=== PATIENT | male | born 1950 ===

== ENCOUNTER → 2017-07-21 | Outpatient (CLI) | payer MEDICARE, BC ==
--- NOTE | 2017-07-22 10:26 | BD ---
EXAMINATION TYPE: Axial Bone Density DATE OF EXAM: 07/21/2017 COMPARISON: NONE CLINICAL HISTORY: Osteoporosis screening. Postmenopausal female. Height: 6 ft Weight: FRAX RISK QUESTIONS: Secondary Osteoporosis: 1. Type 1 Diabetes: TYPE 2 Current Tobacco Use: YES RISK FACTORS HISTORY OF: Active: YES MEDICATIONS: How Long: Additional Medications: ACTOS, HYDROCODONE,ASPIRIN, PRESER VISION, NIACIN, OMEGA 3, VIT 3, METFORMIN, PLAVIX, JANUVIA, METOPROLOL, ATORVASTATIN, DIOVAN Additional History: PT HAD KNEE REPLACMENT 3 WEEKS AGO EXAM MEASUREMENTS: Bone mineral densitometry was performed using the [employer] System. Bone mineral density as measured about the Lumbar spine is: ----- L1-L4(G/cm2): 1.275 T Score Values are as follows: ----- L2: 1.2 ----- L3: -0.1 ----- L4: 2.0 ----- L1-L4: 0.8 BASELINE Bone mineral density about the R hip (g/cm2): 0.911 Bone mineral density about the L hip (g/cm2): 0.881 T Score values are as follows: -----R Neck: -0.9 -----L Neck: -1.1 -----R Total: -0.7 -----L Total: 0.0 BASELINE IMPRESSION: Osteopenia (T Score between -2.5 and -1) with regards to the left femur. There is slightly increased risk of fracture and the patient may be considered for treatment. Re-Screen 2-5 years. NOTE: T-SCORE=SD OF THE YOUNG ADULT MEAN.
== END | disposition home or self-care (01) ==
LOC: RADBDWWP 16:07
PROVIDERS: ATTEND Family Medicine
DX: M85.852 Other specified disorders of bone density and structure, left thigh (principal); E11.22 Type 2 diabetes mellitus with diabetic chronic kidney disease; N18.9 Chronic kidney disease, unspecified
CPT/HCPCS: 77080

== ENCOUNTER → 2018-09-04 | Outpatient (CLI) | payer MEDICARE ==
--- NOTE | 2018-09-04 15:24 | XR ---
KUB HISTORY: Abdominal pain and history kidney stone, right flank pain KUB on 2 images Kidney show no definite calcifications. Degenerative disc changes in the visualized spine. Calcificat ions within the pelvis may be vascular. No evident bowel obstruction or pneumoperitoneum. IMPRESSION: No acute abnormality
== END | disposition home or self-care (01) ==
LOC: RADXRYALE 14:40
PROVIDERS: ATTEND Physician Assistant
DX: R10.30 Lower abdominal pain, unspecified (principal); Z87.442 Personal history of urinary calculi
CPT/HCPCS: 74018

== ENCOUNTER → 2018-09-22 | Outpatient (CLI) | payer MEDICARE ==
--- NOTE | 2018-09-22 15:18 | US ---
EXAMINATION TYPE: US kidneys/renal and bladder DATE OF EXAM: 09/22/2018 COMPARISON: NONE CLINICAL HISTORY: I129 HYPERTENSIVE CHR KIDNEY DISEASE,N183 CKD. Hx renal stones. Patient states hav ing a hx of renal stones. Right side pain. EXAM MEASUREMENTS: Right Kidney: 10.4 x 4.6 x 5.1 cm Left Kidney: 10.5 x 4.5 x 5.0 cm Right Kidney: No hydronephrosis or masses seen Left Kidney: Cystic appearing lesion visualized. Lesion noted at the lower pole= 2.4 x 2.1 x 2.2 cm, smaller probable cortical cyst also present Bladder: Adjacent to inferior right wall, lesion visualized= 1.5 x 1.4 x 1.1 cm Bilateral Jets seen Cortical medullary differentiation is maintained. Inferior impression on the urinary bladder due to enlarged prostate is noted. IMPRESSION: Luminal abnormality along the urinary bladder wall is indeterminate, difficult to exclude transitiona l cell carcinoma although findings could be related to the hypertrophic prostate gland. Consider urol ogy consult. Cyst within the left kidney appears simple
== END | disposition home or self-care (01) ==
LOC: RADUSWWP 13:35
PROVIDERS: ATTEND Family Medicine
DX: N28.1 Cyst of kidney, acquired (principal); I12.9 Hypertensive chronic kidney disease with stage 1 through stage 4 chronic kidney disease, or unspecified chronic kidney disease; N18.3 Chronic kidney disease, stage 3 (moderate)
CPT/HCPCS: 76770

== ENCOUNTER → 2020-07-04 | Outpatient (CLI) | payer MEDICARE ==
--- NOTE | 2020-07-04 09:21 | US ---
EXAMINATION TYPE: US kidneys/renal and bladder DATE OF EXAM: 07/04/2020 COMPARISON: NONE CLINICAL HISTORY: R31.9 Hematuria. microscopic hematuria EXAM MEASUREMENTS: Right Kidney: 10.4 x 4.4 x 5.4 cm Left Kidney: 11.1 x 5.4 x 6.2 cm Right Kidney: No hydronephrosis or masses seen Left Kidney:No hydronephrosis or masses seen 2.8 x 1.9 x 2.2cm cyst. Bladder: 2.8 x 1.7cm lesion either within bladder versus stemming off of prostate was seen two years ago on US and is increasing in size Bilateral Jets seen: yes . There is no evidence for hydronephrosis at this point in time. No nephrolithiasis is seen. No teagan s are identified. The urinary bladder is anechoic. Bilateral ureteral jets are seen. IMPRESSION: 1. Hypertrophic change of the prostate gland. 2. Renal cyst left kidney.
== END | disposition home or self-care (01) ==
LOC: RADUSWWP 08:26
PROVIDERS: ATTEND Urology
DX: N28.1 Cyst of kidney, acquired (principal); N40.0 Benign prostatic hyperplasia without lower urinary tract symptoms
CPT/HCPCS: 76770

== ENCOUNTER → 2021-04-08 | Outpatient (CLI) | payer MEDICARE ==
--- NOTE | 2021-04-08 16:31 | XR ---
Abdomen HISTORY: R109,R300 ABD PAIN,Dysuria Frontal view of the abdomen on 2 images, correlation to prior KUB 09/04/2018 Degenerative disc changes are present in the visualized spine. There is retained fecal debris through out the distribution of the ascending and descending colon. Postop change noted to the right hip stat us post arthroplasty. Bone mineralization is reduced. Phleboliths present in left hemipelvis, vascula r calcifications present. Lung bases are clear as visualized. The entire abdomen not included on the exam. IMPRESSION: No abnormality evident to account for patient's symptoms.
== END | disposition home or self-care (01) ==
LOC: RADXRYALE 14:56
PROVIDERS: ATTEND Physician Assistant
DX: R10.9 Unspecified abdominal pain (principal); R30.0 Dysuria
CPT/HCPCS: 74018

== ENCOUNTER → 2023-01-18 | Outpatient (CLI) | payer MEDICARE ==
--- NOTE | 2023-01-18 11:40 | CTL ---
EXAMINATION TYPE: CT Low Dose Lung DATE OF EXAM ORDERED: 01/18/2023 HISTORY: . Lung cancer screening CT DLP: [address] CTDI: 3.29 mGy Automated exposure control for dose reduction was used. SCREENING VISIT: COMPARISON: None TECHNIQUE: Low dose computed tomography scan was performed through the chest at 1 mm thick sections a nd reconstructed images in multiple planes at 1 mm and [address] DIAGNOSTIC QUALITY: Limited, but interpretable FINDINGS: There are multiple subpleural bilateral leg measure 2 mm or less. Larger subpleural right upper lobe nodule on image 90 series 4 and within the right middle lobe image 195 series 4 measuring Artifact limits assessment bases. Limited inspiration with elevated hemidiaphragms. Airway appears pa tent. Subsegmental areas of consolidation most likely atelectasis or scarring. Underlying central lobular s ymphysis changes. A coronary artery calcification is seen. There is a trace of pericardial fluid. Aorta normal caliber with mild atherosclerotic changes. Small hiatal hernia. Structures of the upper abdomen are limited. Hypertrophic degenerative changes spine. IMPRESSION: 1. COPD with multiple less than 5 mm pulmonary nodules which have a benign appearance. 2. Coronary artery calcifications. CT LUNG RAD AND CT CHEST RECOMMENDATION: Lung-Rad 2 Benign Appearance or Behavior: Continue annual sc reening with LDCT in 12 months.
== END | disposition home or self-care (01) ==
LOC: RADCTMAIN 10:42
PROVIDERS: ATTEND Internal Medicine Critical Care Medicine
DX: Z12.2 Encounter for screening for malignant neoplasm of respiratory organs (principal); J44.9 Chronic obstructive pulmonary disease, unspecified; R91.8 Other nonspecific abnormal finding of lung field; I25.10 Atherosclerotic heart disease of native coronary artery without angina pectoris; R06.00 Dyspnea, unspecified; Z87.891 Personal history of nicotine dependence
CPT/HCPCS: 71271; 94060; 94726; 94729

== ENCOUNTER 2023-10-17 15:05 | Inpatient (IN) | payer MEDICARE ==
[~2023-10-17 15:05] MED LIST: HEPARIN SOD,PORK IN 0.45% NACL 250 ML IV ONE; HEPARIN SODIUM 1,000 UN/ML (10ML VL) ONE; INSULIN ASPART (NovoLOG) 100 UNIT/ML VIAL SQ ONE; INSULIN DETEMIR (LEVEMIR) 100 UNIT/ML SYR SQ ONE; SODIUM CHLORIDE 0.9% 1,000 ML BAG ONE
[2023-10-18] MEDS ORDERED: INSULIN DETEMIR (LEVEMIR) 100 UNIT/ML SYR SQ ONE (08:00)
[2023-10-18] MEDS ORDERED: ISOSORBIDE MONONITRATE ER 30 MG TAB.ER.24H PO ONE (09:49)
[2023-10-18] MEDS ORDERED: ASPIRIN 81 MG ONE (09:49)
[2023-10-18] MEDS ORDERED: CLOPIDOGREL 75 MG TAB ONE (09:49)
[2023-10-18] MEDS ORDERED: TAMSULOSIN 0.4 MG CAP.ER.24H PO ONE (09:50)
[2023-10-18] MEDS ORDERED: METOPROLOL SUCCINATE (ER) 25 MG TAB.ER.24H PO ONE (14:00)
--- NOTE | 2023-11-22 14:05 | XR ---
Patient Jorge Hernandez ID [id number] Order # EXAMINATION TYPE: XR chest 2V DATE OF EXAM: 10/17/2023 COMPARISON: No comparison studies available during PACS downtime INDICATION: Not provided TECHNIQUE: Frontal and lateral views of the chest are obtained. FINDINGS: The heart size is normal. The pulmonary vasculature is normal. The lungs are clear. IMPRESSION: 1. No acute pulmonary process.
== END 2023-10-18 14:07 | disposition home or self-care (01) | DRG 310 ==
LOC: 3SCARD 15:05
PROVIDERS: ADMIT Student in an Organized Health Care Education/Training Program; ATTEND Student in an Organized Health Care Education/Training Program
PROC: 5A2204Z Restoration of Cardiac Rhythm, Single (ICD-10-PCS; principal; 2023-10-17)
DX: I47.10 Supraventricular tachycardia, unspecified (principal); E11.22 Type 2 diabetes mellitus with diabetic chronic kidney disease; E11.65 Type 2 diabetes mellitus with hyperglycemia; N18.9 Chronic kidney disease, unspecified; Z79.4 Long term (current) use of insulin; I25.10 Atherosclerotic heart disease of native coronary artery without angina pectoris; E78.5 Hyperlipidemia, unspecified; F17.210 Nicotine dependence, cigarettes, uncomplicated; Z96.649 Presence of unspecified artificial hip joint; Z96.659 Presence of unspecified artificial knee joint; Z79.84 Long term (current) use of oral hypoglycemic drugs; Z79.02 Long term (current) use of antithrombotics/antiplatelets; Z79.899 Other long term (current) drug therapy; Z95.5 Presence of coronary angioplasty implant and graft; Z85.51 Personal history of malignant neoplasm of bladder; Z79.82 Long term (current) use of aspirin
CPT/HCPCS: 71046; 93005; 96374; 99291

== ENCOUNTER 2024-08-28 23:36 | Inpatient (IN) | payer MEDICARE ==
--- NOTE | 2024-08-28 23:53 | ED ---
Fall HPI - General Chief Complaint: Fall Stated Complaint: Fall, L Side Pain Time Seen by Provider: 08/28/24 23:44 Source: patient, RN notes reviewed, old records reviewed Mode of arrival: ambulatory Limitations: no limitations - History of Present Illness Initial Comments: This is a 73-year-old male after a fall 3 days ago off a ladder. Less than 10 f eet. Patient fell landing on his left side rib pain shoulder pain back pain unsure if he hit his head no loss of consciousness. Pain is severe, mild shortness of breath pain has been ongoing for the last 3 days and significantly and progressively worsening. 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[employer] Fall Witnessed: yes, by family Place Fall Occurred: home Loss of Consciousness: none Prolonged Down Time?: no Symptoms Prior to Fall: none Location: head, chest, back Location - Extremities: Left: Shoulder Severity: severe Severity scale (1-10): 9 Context: tripped/slipped Associated Symptoms: denies - Related Data Home Medications Medication Instructions Recorded Confirmed Atorvastatin [Lipitor] 80 mg PO HS 07/13/13 08/29/24 Clopidogrel [Plavix] 75 mg PO DAILY 07/13/13 08/29/24 sitaGLIPtin [Januvia] 100 mg PO DAILY 07/13/13 08/29/24 Aspirin 81 mg PO DAILY 08/29/24 08/29/24 Ibuprofen [Motrin] 800 mg PO TID PRN 08/29/24 08/29/24 Insulin Glargine,Hum.rec.anlog 65 units SQ HS 08/29/24 08/29/24 [Lantus Solostar Pen] Isosorbide Mononitrate ER [Imdur] 30 mg PO DAILY 08/29/24 08/29/24 Metoprolol Succinate (ER) [Toprol 25 mg PO DAILY 08/29/24 08/29/24 XL] Nitroglycerin Sl Tabs [Nitrostat] 0.4 mg SUBLINGUAL Q5M PRN 08/29/24 08/29/24 [place] 3-6-9 1 cap PO DAILY 08/29/24 08/29/24 Tamsulosin HCl [Flomax] 0.4 mg PO DAILY 08/29/24 08/29/24 Vit C/E/Zn/Coppr/Lutein/Zeaxan 1 cap PO BID 08/29/24 08/29/24 [Preservision Areds 2 Softgel] metFORMIN HCL [Glucophage] 500 mg PO BID 08/29/24 08/29/24 Previous Rx's Medication Instructions Recorded Acetaminophen Tab [Tylenol] 650 mg PO Q6HR PRN tab 09/03/24 Amiodarone [Cordarone] 200 mg PO DAILY #14 tab 09/03/24 HYDROcodone/APAP 10-325MG [[place] 1 each PO Q4HR PRN #30 tab 09/03/24 10-325] Lidocaine 4% Patch 1 patch TOPICAL DAILY #30 patch 09/03/24 Sodium Bicarbonate Tab 650 mg PO TID #90 tab 09/03/24 methocarbamoL [Robaxin] 500 mg PO TID #90 tab 09/03/24 Allergies Allergy/AdvReac Type Severity Reaction Status Date / Time iodine Allergy Unknown Rash/Hives Verified 08/29/24 10:07 Review of Systems ROS Statement: Those systems with pertinent positive or pertinent negative responses have been documented in the HPI. ROS Other: All systems not noted in ROS Statement are negative. Past Medical History Past Medical History: Coronary Artery Disease (CAD), Diabetes Mellitus, Hyperlipidemia Additional Past Medical History / Comment(s): "OCCAS. STOMACH ACHES" History of Any Multi-Drug Resistant Organisms: None Reported Past Surgical History: Appendectomy, Heart Catheterization With Stent, Joint R eplacement, Orthopedic Surgery, Tonsillectomy Additional Past Surgical History / Comment(s): CARDIAC STENTS X2, RT KNEE REPLACEMENT, ARTHROSCOPY LULY KNEES Past Anesthesia/Blood Transfusion Reactions: No Reported Reaction Date of Last Stent Placement:: 2006 Past Psychological History: No Psychological Hx Reported Smoking Status: Current every day smoker Past Alcohol Use History: Occasional Past Drug Use History: None Reported - Past Family History Mother Family Medical History: Cancer Additional Family Medical History / Comment(s): Colon cancer Father Additional Family Medical History / Comment(s): Hemodialysis General Exam Limitations: no limitations General appearance: alert, in no apparent distress Head exam: Present: atraumatic, normocephalic, normal inspection Eye exam: Present: normal appearance, PERRL, EOMI. Absent: scleral icterus, conjunctival injection, periorbital swelling ENT exam: Present: normal exam, mucous membranes moist Neck exam: Present: normal inspection. Absent: tenderness, meningismus, lymphadenopathy Respiratory exam: Present: normal lung sounds bilaterally. Absent: respiratory distress, wheezes, rales, rhonchi, stridor Cardiovascular Exam: Present: regular rate, normal rhythm, normal heart sounds. Absent: systolic murmur, diastolic murmur, rubs, gallop, clicks GI/Abdominal exam: Present: soft, normal bowel sounds. Absent: distended, tenderness, guarding, rebound, rigid Extremities exam: Present: normal inspection, full ROM, normal capillary refill. Absent: tenderness, pedal edema, joint swelling, calf tenderness Back exam: Present: normal inspection Neurological exam: Present: alert, oriented X3, CN II-XII intact Psychiatric exam: Present: normal affect, normal mood Skin exam: Present: warm, dry, intact, normal color. Absent: rash Course Vital Signs 08/28/24 08/28/24 08/29/24 23:37 23:50 00:40 Temperature 98.0 F Pulse Rate 78 88 170 H Respiratory 18 16 20 Rate Blood Pressure 102/58 106/80 O2 Sat by Pulse 92 L 95 95 Oximetry 08/29/24 08/29/24 08/29/24 00:57 01:01 01:11 Temperature Pulse Rate 177 H 168 H 160 H Respiratory 20 22 20 Rate Blood Pressure 114/92 107/87 106/20 O2 Sat by Pulse 92 L 92 L 92 L Oximetry 08/29/24 08/29/24 08/29/24 01:32 01:35 01:37 Temperature Pulse Rate 138 H 122 H Respiratory 18 18 Rate Blood Pressure 109/68 94/66 O2 Sat by Pulse 95 92 L 95 Oximetry 08/29/24 08/29/24 08/29/24 01:40 01:56 02:36 Temperature Pulse Rate 109 H 106 H 92 Respiratory 18 18 16 Rate Blood Pressure 114/70 130/69 102/65 O2 Sat by Pulse 95 96 97 Oximetry 08/29/24 08/29/24 08/29/24 03:31 05:13 07:35 Temperature 98.2 F 98.2 F Pulse Rate 98 90 90 Respiratory 16 16 18 Rate Blood Pressure 111/57 135/80 148/91 O2 Sat by Pulse 96 99 Oximetry 08/29/24 08/29/24 08/29/24 08:23 09:12 09:21 Temperature Pulse Rate 86 77 Respiratory 16 18 Rate Blood Pressure 134/59 134/62 O2 Sat by Pulse 98 100 99 Oximetry 08/29/24 08/29/24 08/29/24 11:32 13:31 15:39 Temperature 98.5 F Pulse Rate 84 75 74 Respiratory 18 16 18 Rate Blood Pressure 171/75 141/79 138/78 O2 Sat by Pulse 98 95 Oximetry 08/29/24 08/29/24 08/29/24 18:08 19:22 22:00 Temperature Pulse Rate 66 69 60 Respiratory 12 18 18 Rate Blood Pressure 135/60 134/70 O2 Sat by Pulse 97 98 99 Oximetry 08/30/24 08/30/24 08/30/24 00:00 02:00 06:26 Temperature Pulse Rate 60 57 L 60 Respiratory 18 18 18 Rate Blood Pressure 132/72 147/80 160/73 O2 Sat by Pulse 98 98 98 Oximetry 08/30/24 08/30/24 09:00 13:00 Temperature Pulse Rate 75 68 Respiratory 17 17 Rate Blood Pressure 145/78 131/75 O2 Sat by Pulse 98 97 Oximetry - Reevaluation(s) Reevaluation #1: 08/29/24 00:13 Medical records reviewed Reevaluation #2: 08/29/24 01:58 Patient begins to have significant and severe short of breath, likely transitioning to tamponade, found to be in atrial fibrillation with RVR which is new onset for this patient. Thora vent is placed with improvement in oxygenation and breathing Heart rate is controlled with Cardizem now in sinus rhythm Reevaluation #3: 08/29/24 01:59 Patient informed of results and questions answered Reevaluation #4: Was pt. sent in by a medical professional or institution (, PA, AUDIO VIDEO TECHNICIAN, urgent care, hospital, or halfway...) When possible be specific @ -no Did you speak to anyone other than the patient for history (EMS, parent, family, police, friend...)? What history was obtained from this source @ -no Did you review nursing and triage notes (agree or disagree)? Why? @ -agree Are old charts reviewed (outside hosp., previous admission, EMS record, old EKG, old radiological studies, urgent care reports/EKG's, halfway records)? Report findings @ -yes Differential Diagnosis (chest pain, altered mental status, abdominal pain women, abdominal pain men, vaginal bleeding, weakness, fever, dyspnea, syncope, headache, dizziness, GI bleed, back pain, seizure, CVA, palpatations, mental health, musculoskeletal)? @ -prior EKG interpreted by me (3pts min.). @ -yes X-rays interpreted by me (1pt min.). @ -yes positive for pneumothorax CT interpreted by me (1pt min.). @ -yes negative for traumatic injury as a chest tube placement U/S interpreted by me (1pt. min.). @ -no What testing was considered but not performed or refused? (CT, X-rays, U/S, labs)? Why? @ -none What meds were considered but not given or refused? Why? @ -none Did you discuss the management of the patient with other professionals (professionals i.e. , PA, AUDIO VIDEO TECHNICIAN, lab, RT, psych nurse, social worker delinquency prevention, title lawyer, teacher, customer service officer, case checker)? Give summary @ -no Was smoking cessation discussed for >3mins.? @ -no Was critical care preformed (if so, how long)? @ -yes92 Were there social determinants of health that impacted care today? How? (Homele ssness, low income, unemployed, alcoholism, drug addiction, transportation, low edu. Level, literacy, decrease access to med. care, nursing home, rehab)? @ -none Was there de-escalation of care discussed even if they declined (Discuss DNR or withdrawal of care, Hospice)? DNR status @ -no What co-morbidities impacted this encounter? (DM, HTN, Smoking, COPD, CAD, Cancer, CVA, ARF, Chemo, Hep., AIDS, mental health diagnosis, sleep apnea, morbid obesity)? @ -none Was patient admitted / discharged? Hospital course, mention meds given and route, prescriptions, significant lab abnormalities, going to OR and other pertinent info. @ - 73 male to the ER for evaluation with severe left-sided chest wall pain rib pain shoulder pain after a fall 3 days ago, patient does have significant distress here in the emergency department goes into new onset atrial fibrillation with RVR and found to have significant left-sided pneumothorax with low blood pressure tension pneumothorax. At this time patient does have a Thora vent placed patient was cardioverted with Cardizem medication, symptoms dramatically improved and he continues to rest comfortably, patient will admit for further evaluation and management Admitted Undiagnosed new problem with uncertain prognosis? @ -no Drug Therapy requiring intensive monitoring for toxicity (Heparin, Nitro, Insulin, Cardizem)? @ -no Were any procedures done? @ -Yes chest tube placement, cardioversion of atrial fibrillation with RVR Diagnosis/symptom? @ -Traumatic pneumothorax, tension pneumothorax, atrial fibrillation with RVR Acute, or Chronic, or Acute on Chronic? @ -Acute Uncomplicated (without systemic symptoms) or Complicated (systemic symptoms)? @ -Complicated Side effects of treatment? @ -no Exacerbation, Progression, or Severe Exacerbation? @ -exacerbation Poses a threat to life or bodily function? How? (Chest pain, [place], [place], pneumonia, PE, COPD, DKA, ARF, appy, cholecystitis, CVA, Diverticulitis, Homicidal, Suicidal, threat to staff... and all critical care pts) @ -yes acute traumatic injury Reevaluation #5: Differential Dyspnea: Coronary syndrome, arrhythmia, tamponade, asthma, COPD, pulmonary embolism, pneu monia, pneumothorax, pulmonary effusion, anaphylaxis, diabetic ketoacidosis, flailed chest, pulmonary contusion, diaphragmatic rupture, anemia, neuromuscular, this is not meant to be an all-inclusive list. - Consultations Consultation #1: Spoke with sound who agrees to admit this patient Procedures - Chest Tube Insertion Consent Obtained: verbal consent Side of Procedure: left Indication: Pneumothorax Site Prep: Chloroprep Local Anesthesia: Lidocaine 1%, With Epi Insertion Site: Other (midClavicular) Open into Pleural Space Using: Hemostats Tube Size (Citizen [place]): Other (thoravent) Returns: Air, Blood Sutured in Place: No (bandage) Attached to Suction: Yes Type of Suction: Pleuravac Repeat X-ray Results: Lung Inflated Patient Tolerated Procedure: well Complications: Pain Medical Decision Making - Medical Decision Making 73 male to the ER for evaluation with severe left-sided chest wall pain rib pain shoulder pain after a fall 3 days ago, patient does have significant distress here in the emergency department goes into new onset atrial fibrillation with RVR and found to have significant left-sided pneumothorax with low blood pressure tension pneumothorax. At this time patient does have a Thora vent placed patient was cardioverted with Cardizem medication, symptoms dramatically improved and he continues to rest comfortably, patient will admit for further evaluation and management - Lab Data Result diagrams: 09/03/24 04:49 09/03/24 04:49 Lab Results 08/29/24 08/29/24 08/29/24 Range/Units 00:47 00:47 00:47 WBC 15.25 H (4.50-10.00) 10*3/uL RBC 4.41 (4.40-5.60) 10*6/uL Hgb 13.1 (13.0-17.0) g/dL Hct 40.0 (39.6-50.0) % MCV 90.7 (80.0-97.0) fL MCH 29.7 (27.0-32.0) pg MCHC 32.8 (32.0-37.0) g/dL Plt Count 272 (140-440) 10*3/uL MPV 11.5 (9.5-12.2) fL Immature Gran % (Auto) 0.5 % Neutrophils % 79.8 % Lymphocytes % 10.2 % Monocytes % 8.1 % Eosinophils % 1.0 % Basophils % 0.4 % Immature Gran # 0.08 H (0.00-0.04) 10*3/uL Neutrophils # 12.16 H (1.80-7.70) 10*3/uL Lymphocytes # 1.55 (0.90-5.00) 10*3/uL Monocytes # 1.24 H (0.20-1.00) 10*3/uL Eosinophils # 0.16 (0.04-0.35) 10*3/uL Basophils # 0.06 (0.00-0.10) 10*3/uL PT 10.9 (10.0-12.5) sec INR 1.0 (<1.2) APTT 33.0 H (22.0-30.0) sec Sodium 139 (137-145) mmol/L Potassium 5.3 H (3.5-5.1) mmol/L Chloride 109 H (98-107) mmol/L Carbon Dioxide 15 L (22-30) mmol/L Anion Gap 15 mmol/L BUN 33 H (9-20) mg/dL Creatinine 1.88 H (0.66-1.25) mg/dL Est GFR (CKD-EPI)AfAm 40 (>60 ml/min/1.73 sqM) Est GFR (CKD-EPI)NonAf 35 (>60 ml/min/1.73 sqM) Glucose 249 H (74-99) mg/dL Calcium 9.6 (8.4-10.2) mg/dL Phosphorus 4.2 (2.5-4.5) mg/dL Magnesium 1.8 (1.6-2.3) mg/dL Total Bilirubin 0.8 (0.2-1.3) mg/dL AST 29 (17-59) U/L ALT 28 (4-49) U/L Alkaline Phosphatase 155 H (38-126) U/L Troponin I (0.000-0.034) ng/mL NT-Pro-B Natriuret Pep 568 pg/mL Total Protein 6.7 (6.3-8.2) g/dL Albumin 4.3 (3.5-5.0) g/dL Serum Alcohol <10 mg/dL 08/29/24 Range/Units 00:47 WBC (4.50-10.00) 10*3/uL RBC (4.40-5.60) 10*6/uL Hgb (13.0-17.0) g/dL Hct (39.6-50.0) % MCV (80.0-97.0) fL MCH (27.0-32.0) pg MCHC (32.0-37.0) g/dL Plt Count (140-440) 10*3/uL MPV (9.5-12.2) fL Immature Gran % (Auto) % Neutrophils % % Lymphocytes % % Monocytes % % Eosinophils % % Basophils % % Immature Gran # (0.00-0.04) 10*3/uL Neutrophils # (1.80-7.70) 10*3/uL Lymphocytes # (0.90-5.00) 10*3/uL Monocytes # (0.20-1.00) 10*3/uL Eosinophils # (0.04-0.35) 10*3/uL Basophils # (0.00-0.10) 10*3/uL PT (10.0-12.5) sec INR (<1.2) APTT (22.0-30.0) sec Sodium (137-145) mmol/L Potassium (3.5-5.1) mmol/L Chloride (98-107) mmol/L Carbon Dioxide (22-30) mmol/L Anion Gap mmol/L BUN (9-20) mg/dL Creatinine (0.66-1.25) mg/dL Est GFR (CKD-EPI)AfAm (>60 ml/min/1.73 sqM) Est GFR (CKD-EPI)NonAf (>60 ml/min/1.73 sqM) Glucose (74-99) mg/dL Calcium (8.4-10.2) mg/dL Phosphorus (2.5-4.5) mg/dL Magnesium (1.6-2.3) mg/dL Total Bilirubin (0.2-1.3) mg/dL AST (17-59) U/L ALT (4-49) U/L Alkaline Phosphatase (38-126) U/L Troponin I <0.012 (0.000-0.034) ng/mL NT-Pro-B Natriuret Pep pg/mL Total Protein (6.3-8.2) g/dL Albumin (3.5-5.0) g/dL Serum Alcohol mg/dL - EKG Data -: EKG Interpreted by Me (EKG is A-fib with RVR 178 QRS 125 QTc 346) EKG shows normal: sinus rhythm (Hoang EKG is sinus rhythm tachycardia 111 LA 181 QRS 131 QTc 407) Rate: tachycardia When compared to previous EKG there are: no significant change (Repeat EKG is sinus tachycardia 107 LA 183 QRS 133 QTc 413) - Radiology Data Radiology results: report reviewed (Chest x-ray left-sided pneumothorax significant, chest x-ray improved, CT brain C-spine chest abdomen pelvis positive chest tube no other acute disease or injury), image reviewed Critical Care Time Critical Care Time: Yes Total Critical Care Time: 92 Disposition Clinical Impression: Fall, Ribs, multiple fractures, Pneumothorax, left, New onset atrial flutter, Atrial fibrillation with RVR Disposition: ADMITTED IP TO THIS HOSP Condition: Serious Is patient prescribed a controlled substance at d/c from ED?: No Time of Disposition: 02:00
[2024-08-28] MEDS: HYDROmorphone 1 MG/ML 1 ML SYRINGE IM STA (23:55)
[2024-08-29] MEDS: SODIUM CHLORIDE 0.9% 1,000 ML IV ONE ×2 (00:56→01:19)
[2024-08-29] MEDS: ONDANSETRON 4 MG/2 ML VIAL IVP STA (00:58)
[2024-08-29] MEDS: LIDOCAINE 1%-EPI 1:100,000 20 ML VIAL SQ STA (00:58)
[2024-08-29 00:59] LABS: Basophils # (A) 0.06 10*3/uL (0.00-0.10); Basophils % (A) 0.4 %; Eosinophils # (A) 0.16 10*3/uL (0.04-0.35); HGB 13.1 g/dL (13.0-17.0); Lymphocytes # (A) 1.55 10*3/uL (0.90-5.00); Lymphocytes % (A) 10.2 %; MCH 29.7 pg (27.0-32.0); MCHC 32.8 g/dL (32.0-37.0); MCV 90.7 fL (80.0-97.0); Mean Platelet Volume 11.5 fL (9.5-12.2); Monocytes # (A) 1.24 10*3/uL (0.20-1.00); Monocytes % (A) 8.1 %; Neutrophils # (A) 12.16 10*3/uL (1.80-7.70); Neutrophils % (A) 79.8 %; Platelet Count 272 10*3/uL (140-440); RBC 4.41 10*6/uL (4.40-5.60); RDW 13.8 % (11.5-14.5); WBC 15.25 10*3/uL (4.50-10.00)
[2024-08-29] MEDS: MORPHINE SULFATE 4 MG/ML SYRINGE IV STA (01:00)
[2024-08-29 01:08] LABS: Prothrombin Time 10.9 sec (10.0-12.5)
[2024-08-29 01:12] LABS: ALT 28 U/L (4-49); African American GFR (CKD) 40 (>60 ml/min/1.73 sqM); Albumin 4.3 g/dL (3.5-5.0); Alcohol <10 mg/dL; Anion Gap 15 mmol/L; Blood Urea Nitrogen 33 mg/dL (9-20); Calcium 9.6 mg/dL (8.4-10.2); Carbon Dioxide 15 mmol/L (22-30); Chloride 109 mmol/L (98-107); Glucose 249 mg/dL (74-99); Non-African American GFR(CKD) 35 (>60 ml/min/1.73 sqM); Sodium 139 mmol/L (137-145); Total Bilirubin 0.8 mg/dL (0.2-1.3); Total Protein 6.7 g/dL (6.3-8.2)
[2024-08-29 01:19] LABS: NT-Pro-B-Type Natriuretic Pept 568 pg/mL
[2024-08-29 01:20] LABS: Magnesium 1.8 mg/dL (1.6-2.3); Phosphorus 4.2 mg/dL (2.5-4.5); Potassium 5.3 mmol/L (3.5-5.1)
[2024-08-29 01:21] LABS: AST 29 U/L (17-59); Alkaline Phosphatase 155 U/L (38-126)
[2024-08-29] MEDS: HYDROmorphone 1 MG/ML 1 ML SYRINGE IVP STA (01:25)
[2024-08-29] MEDS: methylPREDNISolone SOD SUCCI 125 MG/2 ML VIAL IV STA (01:25)
[2024-08-29] MEDS: FAMOTIDINE 20 MG/2 ML VIAL IV STA (01:26)
[2024-08-29] MEDS: diphenhydrAMINE 50 MG/ML 1 ML VIAL IVP STA (01:27)
[2024-08-29] MEDS: DILTIAZEM 5 MG/ML 5 ML VIAL IVP STA (01:27)
--- NOTE | 2024-08-29 01:34 | XR ---
EXAM: XR Left Shoulder frontal view CLINICAL HISTORY: c/o fall backwards from ladder. Pt states he fell 10 feet. Pt reports L sided chest pain and L shoulder pain. Pt reports SOB. TECHNIQUE: Frontal view of the left shoulder. COMPARISON: No relevant prior studies available. FINDINGS: Bones/joints: Osteopenia. Lateral left 6th and 7th rib fractures. Left shoulder is intact Soft tissues: Unremarkable. Pleural space: Large left pneumothorax. IMPRESSION: 1. Large left pneumothorax. 2. Lateral left 6th and 7th rib fractures.
--- NOTE | 2024-08-29 01:36 | XR ---
EXAM: XR Chest, 1 View CLINICAL HISTORY: fall TECHNIQUE: Frontal view of the chest. COMPARISON: 10/17/2023 FINDINGS: Lungs: Left lung is contracted over left lower lung zone. Pleural space: Large left pneumothorax with more than 70% loss in volume. Mediastinum: No significant shift. Bones/joints: Osteopenia. Lateral left 6th and 7th rib fractures. Soft tissues: Unremarkable. IMPRESSION: 1. Large left pneumothorax. 2. Lateral left 6th and 7th rib fractures. <MYCVCSECTION> Communications: 08/29/24 01:45 Call Doctor Regarding Pneumothorax, called Dr. Jaimes on 08/29 01:45 (-04:00)
--- NOTE | 2024-08-29 01:59 | XR ---
EXAM: XR Chest, 1 View CLINICAL HISTORY: ITS.REASON XR Reason: LT THORA VENT INSERTION TECHNIQUE: Frontal view of the chest. COMPARISON: Same day at 1:17 a.m. IMPRESSION: Left pneumothorax has resolved after left chest tube placement. Left basilar atelectasis. Re-expansion edema should be considered. No change otherwise
--- NOTE | 2024-08-29 03:41 | CT ---
EXAM: CT Chest With Intravenous Contrast CLINICAL HISTORY: ITS.REASON CT Reason: pain TECHNIQUE: Axial computed tomography images of the chest with intravenous contrast. Coronal and sagittal reconstructions are performed. CTDI is 18.5 mGy and DLP is 1455 mGy-cm. This CT exam was performed using one or more of the following dose reduction techniques: automated exposure control, adjustment of the mA and/or kV according to patient size, and/or use of iterative reconstruction technique. COMPARISON: No relevant prior studies available. FINDINGS: Lungs: A small left hemothorax and adjacent pulmonary contusion versus atelectasis. Trace of left pneumothorax with chest catheter in place. No significant effusion. Heart: Unremarkable. No cardiomegaly. No significant pericardial effusion. No significant coronary artery calcifications. Bones/joints: Fracture in lateral aspect of left 6th and 7th ribs with 9 mm displacement. Soft tissues: Small amount of soft tissue gas of left anterior chest wall. Vasculature: Unremarkable. No thoracic aortic aneurysm. Lymph nodes: Unremarkable. No enlarged lymph nodes. IMPRESSION: 1. Fracture in lateral aspect of left 6th and 7th ribs with 9 mm displacement. 2. A small left hemothorax and adjacent pulmonary contusion versus atelectasis. 3. Trace of left pneumothorax with chest catheter in place. 4. No aortic dissection. EXAM: CT Abdomen and Pelvis With Intravenous Contrast CLINICAL HISTORY: pain TECHNIQUE: Axial computed tomography images of the abdomen and pelvis with intravenous contrast. Coronal and sagittal reconstructions are performed. CTDI is 19.2 mGy and DLP is 1205 mGy-cm. This CT exam was performed using one or more of the following dose reduction techniques: automated exposure control, adjustment of the mA and/or kV according to patient size, and/or use of iterative reconstruction technique. COMPARISON: No relevant prior studies available. FINDINGS: ABDOMEN: Liver: Unremarkable. No mass. Gallbladder and bile ducts: No acute findings. Pancreas: Unremarkable. No mass. No ductal dilation. Spleen: Unremarkable. No splenomegaly. Adrenals: Unremarkable. No mass. Kidneys and ureters: Bilateral renal cysts. Largest is on the left measuring about 3.2 cm. Stomach and bowel: Mild colonic diverticulosis. No obstruction. No mucosal thickening. PELVIS: Appendix: No findings to suggest acute appendicitis. Bladder: Unremarkable. No mass. Reproductive: No acute findings. ABDOMEN and PELVIS: Intraperitoneal space: Unremarkable. No free air. No significant fluid collection. Bones/joints: Total right hip replacement prostheses. Osteopenia. Mild degenerative changes. 6 mm anterolisthesis of L4 on L5. Moderate anterior wedge-shaped compression defect at L 2 with about 40% loss in height, appears chronic. Soft tissues: Unremarkable. Vasculature: Small amount of atherosclerotic calcifications. No abdominal aortic aneurysm. Lymph nodes: Unremarkable. No enlarged lymph nodes. IMPRESSION: No acute findings in the abdomen or pelvis.
[2024-08-29] MEDS ORDERED: ONDANSETRON 4 MG/2 ML VIAL IVP PRN (03:53)
[2024-08-29] MEDS ORDERED: NALOXONE 0.4 MG/ML 1 ML VIAL IV PRN ×2 (03:53)
--- NOTE | 2024-08-29 03:54 | CT ---
EXAM: CT Head Without Intravenous Contrast CLINICAL HISTORY: fall backwards from ladder. pt states he fell 10 feet. pt reports L sided chest pain and L shoulder pain. pt reports SOB. no LOC. no blood thinners TECHNIQUE: Axial computed tomography images of the head/brain without intravenous contrast. Coronal and sagittal reconstructions are performed. CTDI is 45.3 mGy and DLP is 1196 mGy-cm. This CT exam was performed using one or more of the following dose reduction techniques: automated exposure control, adjustment of the mA and/or kV according to patient size, and/or use of iterative reconstruction technique. COMPARISON: No relevant prior studies available. FINDINGS: Brain: Age-related generalized brain volume loss and chronic small vessel ischemic changes. No hemorrhage. Ventricles: Unremarkable. No ventriculomegaly. Bones/joints: No acute findings. Soft tissues: Unremarkable. Sinuses: Unremarkable as visualized. No acute sinusitis. Mastoid air cells: Unremarkable as visualized. No mastoid effusion. Orbits: Bilateral cataract surgeries. IMPRESSION: No acute findings in the head/brain. EXAM: CT Cervical Spine Without Intravenous Contrast CLINICAL HISTORY: fall backwards from ladder. pt states he fell 10 feet. pt reports L sided chest pain and L shoulder pain. pt reports SOB. no LOC. no blood thinners TECHNIQUE: Axial computed tomography images of the cervical spine without intravenous contrast. Coronal and sagittal reconstructions are performed. CTDI is 19.8 mGy and DLP is 505 mGy-cm. This CT exam was performed using one or more of the following dose reduction techniques: automated exposure control, adjustment of the mA and/or kV according to patient size, and/or use of iterative reconstruction technique. COMPARISON: No relevant prior studies available. FINDINGS: Vertebrae: Osteopenia. No acute fracture. Discs/spinal canal/neural foramina: Moderate degenerative disc disease. Soft tissues: Unremarkable. Vasculature: Small amount of atherosclerotic calcifications. IMPRESSION: No acute findings in the cervical spine.
[2024-08-29] MEDS: SODIUM CHLORIDE 0.9% 1,000 ML IV SCH (04:15)
[2024-08-29 05:23] LABS: Appearance,Urine Clear (Clear); Bilirubin,Urine Negative (Negative); Blood,Urine Negative (Negative); Color,Urine Colorless; Glucose,Urine (UA) Negative (Negative); Ketones,Urine Negative (Negative); Leukocyte Esterase,Urine Negative (Negative); Nitrite,Urine Negative (Negative); PH, Urine 5.5 (5.0-8.0); Protein,Urine Trace (Negative); Specific Gravity,Urine 1.037 (1.001-1.035); Urobilinogen,Urine <2.0 mg/dL (<2.0)
[2024-08-29] MEDS ORDERED: ACETAMINOPHEN TAB 325 MG TAB PO PRN (06:00)
--- NOTE | 2024-08-29 08:12 | P.CNPUL ---
History of Present Illness Consult date: 08/29/24 Requesting physician: Nazario Jaimes Reason for consult: other (Left-sided pneumothorax) Chief complaint: Fall, chest pain, shortness of breath History of present illness: Patient presented to emergency department late last night after falling off a ladder 3 days ago. Reportedly, was cutting branches from a tree and fell approximately 10 feet. Landed on his left side. Denies head trauma. On arrival also complaining of some shortness of breath. Tachycardic. Chest x-ray showing a large left-sided pneumothorax. lateral left 6th and 7th rib fractures. ER physician placed a left-sided ThoraVent. Did have a follow-up CT of chest, abdomen, pelvis showing trace left-sided pneumothorax with the ThoraVent catheter in place. Small hemothorax with associated pulmonary contusion or at electasis. Redemonstration of left lateral 6th and 7th rib fractures with 9 mm displacement. Also, patient was noted to be to be in atrial fibrillation with RVR, and was bolused with 20 mg of IV Cardizem. Patient being seen in the emergency department. On 3 L/min nasal cannula. SpO2 reading 99%. Not in any respiratory distress. Blood pressure is normotensive. Nontachycardic. Normal saline infusing at 75 mg/h. As needed Dilaudid was ordered for pain . Pain described as sharp and rated 10 out of 10 with coughing or deep breathing or any movements. ThoraVent to suction and atrium at-20 cm H2O. Does have minimal intermittent air leaking. 70 cc of sanguinous output in collection chamber. CBC: WBC count 15.3 hemoglobin 13.1 g/dL, platelets 272. CMP: Sodium 139, potassium 5.3, chloride 109, serum bicarb 15, BUN 33, creatinine 1.88, glucose 249. Troponin less than 0.012. LFTs not elevated. Urinalysis unremarkable. Serum alcohol level less than 10. Current vital signs: Temperature 98.9, heart rate 94 bpm, blood pressure 145/91 mmHg, SpO2 reading 98% on 3 L/min nasal cannula. Review of Systems REVIEW OF SYSTEMS: CONSTITUTIONAL: Denies any recent significant weight loss or weight gain. EYES: Denies change in vision. EARS, NOSE, MOUTH, THROAT: Denies headaches, denies sore throat. CARDIOVASCULAR: Denies central chest pain, palpitations or syncopal episodes. RESPIRATORY: Denies cough, congestion or hemoptysis. GASTROINTESTINAL: Denies change in appetite, abdominal pain, nausea and vomiting, or diarrhea GENITOURINARY: Denies hematuria, denies infections. MUSKULOSKELETAL: Denies pain, denies swelling. INTEGUMENTARY: Denies rash, denies eczema. NEUROLOGICAL: Denies recent memory loss, no recent seizure activity. PSYCHIATRIC: Denies anxiety, denies depression. HEMATOLOGIC/LYMPHATIC: Denies anemia, denies enlarged lymph node Past Medical History Past Medical History: Coronary Artery Disease (CAD), Diabetes Mellitus, Hyperlipidemia Additional Past Medical History / Comment(s): "OCCAS. STOMACH ACHES" History of Any Multi-Drug Resistant Organisms: None Reported Past Surgical History: Appendectomy, Heart Catheterization With Stent, Joint Replacement, Orthopedic Surgery, Tonsillectomy Additional Past Surgical History / Comment(s): CARDIAC STENTS X2, RT KNEE REPLACEMENT, ARTHROSCOPY LULY KNEES Past Anesthesia/Blood Transfusion Reactions: No Reported Reaction Date of Last Stent Placement:: 2006 Past Psychological History: No Psychological Hx Reported Smoking Status: Current every day smoker Past Alcohol Use History: Occasional Past Drug Use History: None Reported Medications and Allergies Home Medications Medication Instructions Recorded Confirmed Type Atorvastatin [Lipitor] 80 mg PO HS 07/13/13 08/29/24 History Clopidogrel [Plavix] 75 mg PO DAILY 07/13/13 08/29/24 History sitaGLIPtin [Januvia] 100 mg PO DAILY 07/13/13 08/29/24 History Aspirin 81 mg PO DAILY 08/29/24 08/29/24 History HYDROcodone/APAP 10-325MG [[place] 1 tab PO Q6H PRN 08/29/24 08/29/24 History 10-325] Ibuprofen [Motrin] 800 mg PO TID PRN 08/29/24 08/29/24 History Insulin Glargine,Hum.rec.anlog 65 units SQ HS 08/29/24 08/29/24 History [Lantus Solostar Pen] Isosorbide Mononitrate ER [Imdur] 30 mg PO DAILY 08/29/24 08/29/24 History Metoprolol Succinate (ER) [Toprol 25 mg PO DAILY 08/29/24 08/29/24 History Xl] Nitroglycerin Sl Tabs [Nitrostat] 0.4 mg SUBLINGUAL Q5M PRN 08/29/24 08/29/24 History [place] 3-6-9 1 cap PO DAILY 08/29/24 08/29/24 History Tamsulosin HCl [Flomax] 0.4 mg PO DAILY 08/29/24 08/29/24 History Vit C/E/Zn/Coppr/Lutein/Zeaxan 1 cap PO BID 08/29/24 08/29/24 History [Preservision Areds 2 Softgel] metFORMIN HCL [Glucophage] 500 mg PO BID 08/29/24 08/29/24 History Allergies Allergy/AdvReac Type Severity Reaction Status Date / Time iodine Allergy Unknown Rash/Hives Verified 08/29/24 10:07 Physical Exam Vitals: Vital Signs Temp Pulse Resp BP Pulse Ox 08/29/24 05:13 98.2 F 90 16 135/80 99 08/29/24 03:31 98 16 111/57 96 08/29/24 02:36 92 16 102/65 97 08/29/24 01:56 106 H 18 130/69 96 08/29/24 01:40 109 H 18 114/70 95 08/29/24 01:37 95 08/29/24 01:35 122 H 18 94/66 92 L 08/29/24 01:32 138 H 18 109/68 95 08/29/24 01:11 160 H 20 106/20 92 L 08/29/24 01:01 168 H 22 107/87 92 L 08/29/24 00:57 177 H 20 114/92 92 L 08/29/24 00:40 170 H 20 106/80 95 08/28/24 23:50 88 16 95 08/28/24 23:37 98.0 F 78 18 102/58 92 L Intake and Output 08/28/24 08/28/24 08/29/24 14:59 22:59 06:59 Other: Weight 103.419 kg GENERAL EXAM: Alert, 73-year-old male, resting comfortably on 3 L/min nasal cannula, in no respiratory distresss. HEAD: Normocephalic and atraumatic EYES: Normal reaction of pupils, equal size. NOSE: Clear with pink turbinates. THROAT: No erythema or exudates. NECK: No masses, no JVD. Trachea is midline. CHEST: ThoraVent left chest wall hooked to atrium with suction -20 cm H2O. Continues to have intermittent airleak. Approximately 70 cc of sanguinous output in collection chamber. No subcutaneous emphysema or crepitus palpated on chest wall. LUNGS: Equal air entry with no crackles, wheeze, rhonchi or dullness. No conversational dyspnea or accessory muscle use.. CVS: S1 and S2 normal with no audible murmur, regular rhythm. No extra heart sounds ABDOMEN: No hepatosplenomegaly, active bowel sounds, no guarding or rigidity. SPINE: No scoliosis or deformity SKIN: No rashes CENTRAL NERVOUS SYSTEM: No focal deficits, tone is normal in all 4 extremities. EXTREMITIES: There is no peripheral edema, clubbing, or cyanosis. Peripheral pulses are intact. Results - Laboratory Findings CBC and BMP: 08/29/24 00:47 08/29/24 00:47 PT/INR, D-dimer PT 10.9 sec (10.0-12.5) 08/29/24 00:47 INR 1.0 (<1.2) 08/29/24 00:47 Abnormal lab findings: Abnormal Labs 08/29/24 08/29/24 08/29/24 00:47 00:47 00:47 WBC 15.25 H Immature Gran # 0.08 H Neutrophils # 12.16 H Monocytes # 1.24 H APTT 33.0 H Potassium 5.3 H Chloride 109 H Carbon Dioxide 15 L BUN 33 H Creatinine 1.88 H Glucose 249 H Alkaline Phosphatase 155 H Ur Specific [place] Urine Protein 08/29/24 04:56 WBC Immature Gran # Neutrophils # Monocytes # APTT Potassium Chloride Carbon Dioxide BUN Creatinine Glucose Alkaline Phosphatase Ur Specific [place] 1.037 H Urine Protein Trace H - Diagnostic Findings Chest x-ray: image reviewed CT scan - chest: image reviewed Assessment and Plan Assessment: Fall from ladder, approximately 10 feet resulting in left lateral displaced rib fractures 6 and 7, traumatic left-sided pneumothorax, hemothorax, with associated atelectasis or more likely pulmonary contusion. Status post Thora vent insertion, follow-up CT of chest, abdomen, pelvis showing trace left-sided pneumothorax with the ThoraVent catheter in place. Small h emothorax with associated pulmonary contusion or atelectasis. Redemonstration of left lateral 6th and 7th rib fractures with 9 mm displacement Acute hypoxemic respiratory failure, currently on 3 L/min nasal cannula, secondary to above New onset atrial fibrillation with RVR, likely secondary to above, currently normal sinus Chronic kidney disease stage III Hypertension History of hyperlipidemia History of coronary artery disease with previous PCI/stents Diabetes mellitus type 2 Obesity, BMI 31.8 kg/m Plan: Patient status post ThoraVent insertion on the left Repeat imaging showing only trace residual left-sided pneumothorax and small hemothorax Chest tube currently to suction -20 cm H2O As needed Dilaudid ordered for pain Pain management consultation Encourage incentive spirometer hourly Previously bolused with 20 mg of Cardizem Cardiology consulted for management of patient's A-fib We will continue to follow I have personally seen and examined the patient, performed the documentation and the assessment and plan as written. Number of minutes spent on the visit:20 08/29/2024, the patient is being seen in joint evaluation along with the nurse practitioner. The patient is currently still in the emergency department. The patient had a fall off a 10 foot ladder landing on his left chest and sustained an injury to his left rib cage. The patient is displaced left 6th and 7th ribs and a large left-sided traumatic pneumothorax and a Thora vent was inserted with successful reexpansion of the left lung. At this point, there is no active leak in the patient's Thora vent is attached to a Pleur-evac. The patient continues to have chest wall pain and the patient is currently on Dilaudid for pain control every 3 hours. The patient is currently hypoxic and currently on 2 L of oxygen by nasal cannula with a pulse ox of 98%. There may be also a pulmonary contusion involving the left lung. In terms of comorbidities, the patient is known to have coronary artery disease, chronic stage III kidney disease, hypertension hyperlipidemia and diabetes mellitus type 2. He also had a bout of atrial fibrillation with rapid ventricular response and he has converted back into normal sinus rhythm. He is current cardiac rhythm is sinus tachycardia and he has recovered from his A-fib RVR. Remains on aspirin and Plavix. Remains on amiodarone 200 mg p.o. twice daily and metoprolol 25 mg XL 1 tablet a day. Renal function remains stable. Hemoglobin stable at 13.1. Troponins are negative. proBNP is not elevated. Alcohol level is less than 10. Time with Patient: Greater than 30
[2024-08-29] MEDS: AMIODARONE 200 MG TAB PO SCH (08:24)
[2024-08-29] MEDS ORDERED: DEXTROSE 50% SYRINGE 50 ML IVP PRN ×2 (08:51)
[2024-08-29] MEDS: SODIUM BICARBONATE TAB 650 MG TAB PO SCH (09:18)
--- NOTE | 2024-08-29 09:26 | P.HPIM ---
History of Present Illness H&P Date: 08/29/24 Patient is a 73-year-old male with history of CAD status post stent, type 2 diabetes, dyslipidemia, nicotine dependence presenting after falling off of a ladder 3 days ago. It was approximately 10 feet high and this happened while he was cutting branches of a tree. He landed on his left side. He claims that he felt like he was healing over the last 2 days but this morning, he was having more difficulty breathing. Most of his pain is on the left side. Denies any nausea, vomiting, abdominal pain, urinary or bowel complaints. In the ED, temperature was 98, pulse 78 then went up to 170, respiratory rate 18, blood pressure 102/58, saturating at 92% on room air. WBC 15.2, hemoglobin 13.1, potassium 5.3, bicarb 15, anion gap 15, creatinine 1.88, glucose 249, troponin initial negative, second was 0.019, proBNP 568, urinalysis negative, serum alcohol negative. Chest x-ray independently interpreted, shows large left-sided pneumothorax. Lateral left 6th and 7th rib fractures. Shoulder x- ray showed the same. Chest and abdomen pelvis CT showed 1 cm rib fractures with 9 mm displacement, small left hemothorax with adjacent pulmonary contusion versus atelectasis. Patient had chest tube placed at this point, showed trace left pneumothorax, no aortic dissection. Head and cervical spine CT did not show any acute process. EKG independently interpreted, shows atrial fibrillati on with right bundle branch block and RVR. Most recent EKG shows sinus tachycardia with right bundle branch block. Cardiology, pulmonology, general surgery consulted. Pertinent positives and negatives as discussed in HPI, a complete review of systems was performed and all other systems are negative. Patient seen and examined at bedside. Vital signs reviewed General: nontoxic, no distress, appears at stated age Derm: warm, dry, left lateral chest bruising Head: atraumatic, normocephalic, symmetric Eyes: EOMI, no lid lag, anicteric sclera, pupils equal round reactive to light ENT: Nose and ears atraumatic Neck: No thyromegaly, supple Mouth: no lip lesion, mucus membranes moist Cardiovascular: S1S2 reg, no murmur, no edema Lungs: clear to auscultation bilateral, no rhonchi, no rales, no wheeze, no accessory muscle use, chest tube in place, supplemental oxygen Abdominal: soft, nontender to palpation, no guarding, no appreciable organomegaly Ext: no gross muscle atrophy, muscle strength muscle strength 5 out of 5 in all 4 extremities, no contractures Neuro: CN II-XII grossly intact Psych: Alert, oriented, appropriate affect Assessment/Plan: Active: Mechanical fall Traumatic large left pneumothorax Left lateral 6th and 7th rib fracture Suspected pulmonary contusion Small left hemothorax New onset A-fib with RVR Leukocytosis, reactive secondary to above - Patient has now status post chest tube - Pulmonology note reviewed, continue conservative management - Pain control with oral Tylenol as needed, oral [place] as needed, IV Dilaudid as needed, lidocaine patch daily - General Surgery and cardiology consulted - Cardiology starting patient on amiodarone 200 twice daily - Continue to trend troponin - May need an echocardiogram, defer to cardiology History of CKD stage III - Creatinine at baseline - Continue to monitor Mild anion gap and non-anion gap metabolic acidosis Mild hyperkalemia - Started on sodium bicarb 650 mg 3 times daily - Continue to monitor Type 2 diabetes Hyperglycemia - Sliding scale insulin, monitor for hypoglycemia Chronic: CAD status post stent Dyslipidemia Hypertension - Resume home medications once reconciled The patient is admitted with an anticipated greater than 2 midnight stay as inpatient status for evaluation of pulmonary contusion and pneumothorax. Surrogate decision-maker: Daughter CODE STATUS: Full code DVT prophylaxis: SCDs Anticipated discharge date: Pending clinical course Anticipated discharge place: Pending clinical course A total of 65 minutes was spent on the care of this complex patient more than 50% of the time was spent in counseling and care coordination. Past Medical History Past Medical History: Coronary Artery Disease (CAD), Diabetes Mellitus, Hype rlipidemia Additional Past Medical History / Comment(s): "OCCAS. STOMACH ACHES" History of Any Multi-Drug Resistant Organisms: None Reported Past Surgical History: Appendectomy, Heart Catheterization With Stent, Joint Replacement, Orthopedic Surgery, Tonsillectomy Additional Past Surgical History / Comment(s): CARDIAC STENTS X2, RT KNEE REPLACEMENT, ARTHROSCOPY LULY KNEES Past Anesthesia/Blood Transfusion Reactions: No Reported Reaction Date of Last Stent Placement:: 2006 Past Psychological History: No Psychological Hx Reported Smoking Status: Current every day smoker Past Alcohol Use History: Occasional Past Drug Use History: None Reported Medications and Allergies Home Medications Medication Instructions Recorded Confirmed Type Atorvastatin [Lipitor] 80 mg PO HS 07/13/13 09/24/13 History Clopidogrel [Plavix] 75 mg PO DAILY 07/13/13 09/21/13 History Fenofibrate,Micronized 200 mg PO DAILY 07/13/13 09/24/13 History [Fenofibrate] Fish Oil/Dha/Epa [Fish Oil 1,200 1 tab PO DAILY 07/13/13 09/21/13 History mg Fish Oil] Metoprolol Tartrate [Lopressor] 50 mg PO BID 07/13/13 09/24/13 History Niacin 500 mg PO DAILY 07/13/13 09/24/13 History Pioglitazone [Actos] 45 mg PO DAILY 07/13/13 09/24/13 History Valsartan [Diovan] 160 mg PO QAM 07/13/13 09/24/13 History glipiZIDE [Glucotrol] 10 mg PO [id number] 07/13/13 09/24/13 History metFORMIN HCL [Glucophage] 1,000 mg PO BID 07/13/13 09/24/13 History sitaGLIPtin [Januvia] 100 mg PO QAM 07/13/13 09/24/13 History Aspirin 325 mg PO DAILY 09/21/13 09/21/13 History Allergies Allergy/AdvReac Type Severity Reaction Status Date / Time iodine Allergy Unknown Rash/Hives Verified 08/28/24 23:42 Physical Exam Vitals: Vital Signs Temp Pulse Resp BP Pulse Ox 08/29/24 08:23 86 16 134/59 98 08/29/24 07:35 98.2 F 90 18 148/91 08/29/24 05:13 98.2 F 90 16 135/80 99 08/29/24 03:31 98 16 111/57 96 08/29/24 02:36 92 16 102/65 97 08/29/24 01:56 106 H 18 130/69 96 08/29/24 01:40 109 H 18 114/70 95 08/29/24 01:37 95 08/29/24 01:35 122 H 18 94/66 92 L 08/29/24 01:32 138 H 18 109/68 95 08/29/24 01:11 160 H 20 106/20 92 L 08/29/24 01:01 168 H 22 107/87 92 L 08/29/24 00:57 177 H 20 114/92 92 L 08/29/24 00:40 170 H 20 106/80 95 08/28/24 23:50 88 16 95 08/28/24 23:37 98.0 F 78 18 102/58 92 L Intake and Output 08/28/24 08/29/24 08/29/24 22:59 06:59 14:59 Output Total 70 Balance -70 Output: Chest Tube Drainage 70 Thora-Vent Left Upper 70 Anterior Chest Other: Weight 103.419 kg Results CBC & Chem 7: 08/29/24 00:47 08/29/24 00:47 Labs: Abnormal Lab Results - Last 24 Hours (Table) 08/29/24 08/29/24 08/29/24 Range/Units 00:47 00:47 00:47 WBC 15.25 H (4.50-10.00) 10*3/uL Immature Gran # 0.08 H (0.00-0.04) 10*3/uL Neutrophils # 12.16 H (1.80-7.70) 10*3/uL Monocytes # 1.24 H (0.20-1.00) 10*3/uL APTT 33.0 H (22.0-30.0) sec Potassium 5.3 H (3.5-5.1) mmol/L Chloride 109 H (98-107) mmol/L Carbon Dioxide 15 L (22-30) mmol/L BUN 33 H (9-20) mg/dL Creatinine 1.88 H (0.66-1.25) mg/dL Glucose 249 H (74-99) mg/dL Alkaline Phosphatase 155 H (38-126) U/L Ur Specific [place] (1.001-1.035) Urine Protein (Negative) 08/29/24 Range/Units 04:56 WBC (4.50-10.00) 10*3/uL Immature Gran # (0.00-0.04) 10*3/uL Neutrophils # (1.80-7.70) 10*3/uL Monocytes # (0.20-1.00) 10*3/uL APTT (22.0-30.0) sec Potassium (3.5-5.1) mmol/L Chloride (98-107) mmol/L Carbon Dioxide (22-30) mmol/L BUN (9-20) mg/dL Creatinine (0.66-1.25) mg/dL Glucose (74-99) mg/dL Alkaline Phosphatase (38-126) U/L Ur Specific [place] 1.037 H (1.001-1.035) Urine Protein Trace H (Negative)
--- NOTE | 2024-08-29 10:32 | P.CRDCN ---
History of Present Illness History of present illness: HISTORY OF PRESENT ILLNESS: This is a 73-year-old male with a past medical history significant for coronary artery disease with previous PCI at [facility], hypertension, hyperlipidemi a, diabetes, tobacco use, and alcohol use. Patient follows with a brush holder assembler at [facility]. we have been asked to see the patient in consultation for A- fib with RVR. Patient examined at the bedside. Patient presented to the hospital after sustaining a fall from a ladder. Patient was found to have a pneumothorax and had a left Thora vent placed. Additionally patient was found to be in A-fib with RVR. He is currently in sinus mechanism. Patient reports a lot of pain secondary to rib fractures. Vital signs are stable. REVIEW OF SYSTEMS: At the time of my exam: CONSTITUTIONAL: Denies fever or chills. HEENT: Denies blurred vision, vision changes, or eye pain. Denies hemoptysis CARDIOVASCULAR: Denies chest pain. Denies orthopnea. Denies PND. Denies palpitations RESPIRATORY: Denies shortness of breath. GASTROINTESTINAL: Denies abdominal pain. Denies nausea or vomiting. HEMATOLOGIC: Denies bleeding disorders. GENITOURINARY: Denies any blood in urine. SKIN: Denies pruitis. Denies rash. PHYSICAL EXAM: VITAL SIGNS: Reviewed. GENERAL: Well-developed in no acute distress. HEENT: Head is normocephalic. Pupils are equal, round. Sclerae anicteric. Mucous membranes of the mouth are moist. Neck supple. No JVD or thyromegaly LUNGS: Respirations even and unlabored. Lungs essentially clear to auscultation bilaterally. HEART: Regular rate and rhythm. S1 and S2 heard. ABDOMEN: Soft. Nondistended. Nontender. EXTREMITIES: Normal range of motion. No clubbing or cyanosis. Peripheral pulses intact. No lower extremity edema NEUROLOGIC: Awake and alert. Oriented x 3. ASSESSMENT: Status post mechanical fall Left pneumothorax, secondary to traumatic fall, status post Thora vent Left-sided rib fractures New onset A-fib with RVR, currently maintaining sinus mechanism Coronary artery disease with previous PCI performed at [facility] Hypertension Hyperlipidemia Diabetes Nicotine dependence Alcohol use PLAN: May obtain updated echocardiogram on an outpatient basis with patient's primary brush holder assembler Resume home cardiac medications Resume aspirin and Plavix when cleared by trauma surgery Due to trauma, will hold off on initiating oral anticoagulation. This can be reassessed on an outpatient basis when patient follows up with his primary brush holder assembler at [facility] Begin oral amiodarone 200 mg twice daily for 1 week only then discontinue comple tely No further inpatient recommendations from a cardiac standpoint We will sign off. Please reconsult if needed. Nurse practitioner note has been reviewed by physician. Signing provider agrees with the documented findings, assessment, and plan of care documented by MARINE DRAFTER as a scribe. Past Medical History Past Medical History: Coronary Artery Disease (CAD), Diabetes Mellitus, Hyperlipidemia Additional Past Medical History / Comment(s): "OCCAS. STOMACH ACHES" History of Any Multi-Drug Resistant Organisms: None Reported Past Surgical History: Appendectomy, Heart Catheterization With Stent, Joint Replacement, Orthopedic Surgery, Tonsillectomy Additional Past Surgical History / Comment(s): CARDIAC STENTS X2, RT KNEE REPLACEMENT, ARTHROSCOPY LULY KNEES Past Anesthesia/Blood Transfusion Reactions: No Reported Reaction Date of Last Stent Placement:: 2006 Past Psychological History: No Psychological Hx Reported Smoking Status: Current every day smoker Past Alcohol Use History: Occasional Past Drug Use History: None Reported Medications and Allergies Home Medications Medication Instructions Recorded Confirmed Type Atorvastatin [Lipitor] 80 mg PO HS 07/13/13 08/29/24 History Clopidogrel [Plavix] 75 mg PO DAILY 07/13/13 08/29/24 History sitaGLIPtin [Januvia] 100 mg PO DAILY 07/13/13 08/29/24 History Aspirin 81 mg PO DAILY 08/29/24 08/29/24 History HYDROcodone/APAP 10-325MG [[place] 1 tab PO Q6H PRN 08/29/24 08/29/24 History 10-325] Ibuprofen [Motrin] 800 mg PO TID PRN 08/29/24 08/29/24 History Insulin Glargine,Hum.rec.anlog 65 units SQ HS 08/29/24 08/29/24 History [Lantus Solostar Pen] Isosorbide Mononitrate ER [Imdur] 30 mg PO DAILY 08/29/24 08/29/24 History Metoprolol Succinate (ER) [Toprol 25 mg PO DAILY 08/29/24 08/29/24 History Xl] Nitroglycerin Sl Tabs [Nitrostat] 0.4 mg SUBLINGUAL Q5M PRN 08/29/24 08/29/24 History [place] 3-6-9 1 cap PO DAILY 08/29/24 08/29/24 History Tamsulosin HCl [Flomax] 0.4 mg PO DAILY 08/29/24 08/29/24 History Vit C/E/Zn/Coppr/Lutein/Zeaxan 1 cap PO BID 08/29/24 08/29/24 History [Preservision Areds 2 Softgel] metFORMIN HCL [Glucophage] 500 mg PO BID 08/29/24 08/29/24 History Allergies Allergy/AdvReac Type Severity Reaction Status Date / Time iodine Allergy Unknown Rash/Hives Verified 08/29/24 10:07 Physical Exam Vitals: Vital Signs Temp Pulse Resp BP Pulse Ox 08/29/24 05:13 98.2 F 90 16 135/80 99 08/29/24 03:31 98 16 111/57 96 08/29/24 02:36 92 16 102/65 97 08/29/24 01:56 106 H 18 130/69 96 08/29/24 01:40 109 H 18 114/70 95 08/29/24 01:37 95 08/29/24 01:35 122 H 18 94/66 92 L 08/29/24 01:32 138 H 18 109/68 95 08/29/24 01:11 160 H 20 106/20 92 L 08/29/24 01:01 168 H 22 107/87 92 L 08/29/24 00:57 177 H 20 114/92 92 L 08/29/24 00:40 170 H 20 106/80 95 08/28/24 23:50 88 16 95 08/28/24 23:37 98.0 F 78 18 102/58 92 L Intake and Output 08/28/24 08/29/24 08/29/24 22:59 06:59 14:59 Output Total 70 Balance -70 Output: Chest Tube Drainage 70 Thora-Vent Left Upper 70 Anterior Chest Other: Weight 103.419 kg Results 08/29/24 00:47 08/29/24 00:47 Cardiac Enzymes 08/29/24 08/29/24 Range/Units 00:47 00:47 AST 29 (17-59) U/L Troponin I <0.012 (0.000-0.034) ng/mL Coagulation 08/29/24 Range/Units 00:47 PT 10.9 (10.0-12.5) sec APTT 33.0 H (22.0-30.0) sec CBC 08/29/24 Range/Units 00:47 WBC 15.25 H (4.50-10.00) 10*3/uL RBC 4.41 (4.40-5.60) 10*6/uL Hgb 13.1 (13.0-17.0) g/dL Hct 40.0 (39.6-50.0) % Plt Count 272 (140-440) 10*3/uL Comprehensive Metabolic Panel 08/29/24 Range/Units 00:47 Sodium 139 (137-145) mmol/L Potassium 5.3 H (3.5-5.1) mmol/L Chloride 109 H (98-107) mmol/L Carbon Dioxide 15 L (22-30) mmol/L BUN 33 H (9-20) mg/dL Creatinine 1.88 H (0.66-1.25) mg/dL Glucose 249 H (74-99) mg/dL Calcium 9.6 (8.4-10.2) mg/dL AST 29 (17-59) U/L ALT 28 (4-49) U/L Alkaline Phosphatase 155 H (38-126) U/L Total Protein 6.7 (6.3-8.2) g/dL Albumin 4.3 (3.5-5.0) g/dL Current Medications Generic Name Dose Route Start Last Admin Trade Name Freq PRN Reason Stop Dose Admin Acetaminophen 650 mg 08/29/24 06:00 Acetaminophen Tab 325 Mg Tab PO Q6HR PRN Fever and/ or Pain Hydromorphone HCl 1 mg 08/29/24 03:53 Hydromorphone 1 Mg/Ml 1 Ml Syringe IVP Q3HR PRN Severe Pain (Scale 7 to 10) Hydromorphone HCl 0.5 mg 08/29/24 06:00 Hydromorphone 0.5 Mg/0.5 Ml Syringe IVP Q6HR PRN Pain Sodium Chloride 1,000 mls @ 75 mls/hr 08/29/24 04:00 08/29/24 04:15 Saline 0.9% IV 75 mls/hr .[id number] JOSE Administration Naloxone HCl 0.2 mg 08/29/24 03:53 Naloxone 0.4 Mg/Ml 1 Ml Vial IV Q2M PRN Opioid Reversal Ondansetron HCl 4 mg 08/29/24 03:53 Ondansetron 4 Mg/2 Ml Vial IVP Q8HR PRN Nausea And Vomiting Intake and Output 08/28/24 08/29/24 08/29/24 22:59 06:59 14:59 Output Total 70 Balance -70 Output: Chest Tube Drainage 70 Thora-Vent Left Upper 70 Anterior Chest Other: Weight 103.419 kg 08/29/24 00:47 08/29/24 00:47
[2024-08-29] MEDS: HYDROmorphone 0.5 MG/0.5 ML SYRINGE IVP PRN (11:20)
[2024-08-29] MEDS: METOPROLOL SUCCINATE (ER) 25 MG TAB.ER.24H PO SCH (11:25)
[2024-08-29] MEDS: ISOSORBIDE MONONITRATE ER 30 MG TAB.ER.24H PO SCH (11:25)
[2024-08-29] MEDS: LIDOCAINE 4% PATCH TOPICAL SCH (11:26)
--- NOTE | 2024-08-29 11:46 | XR ---
EXAMINATION TYPE: XR femur LT DATE OF EXAM: 08/29/2024 11:19 AM COMPARISON: None CLINICAL INDICATION: Male, 73 years old with history of trauma, fall, pain; PHH, pain TECHNIQUE: 2 views FINDINGS: Limited by osteopenia and overlying soft tissue especially at the hip. No obvious displace d fracture is seen. Some scattered vascular calcifications are noted. IMPRESSION: Limited by osteopenia and overlying soft tissue. No evident displaced fracture is seen. [facility], Workstation: [facility], 08/29/2024 11:44 AM
--- NOTE | 2024-08-29 13:02 | P.GSCN ---
History of Present Illness Consult date: 08/29/24 History of present illness: CHIEF COMPLAINT: Fall with left rib pain HISTORY OF PRESENT ILLNESS: This is a 73-year-old male who fell from a ladder 4 days ago. The ladder was less than 10 feet tall. He fell and landed on his left rib cage and back. Patient complains of pain left rib cage left shoulder and left lateral side of his leg. He denies any loss of consciousness. He is on Plavix. Patient had CT scan chest abdomen and pelvis that had reported fractures of the lateral left 6th, 7th and 9th ribs with a 9 mm displacement. Also small left hemothorax and possible pulmonary contusion and trace left pneumothorax with chest tube in place. Chest x-ray had reported a left large pneumothorax and patient had a Thora vent placed in the ER. Patient also with A-fib RVR and being seen by cardiology service. Patient denies any nausea or vomiting. Denies any abdominal pain. Does report pain with taking deep breaths. PAST MEDICAL HISTORY: See below. PAST SURGICAL HISTORY: See below MEDICATIONS: See below ALLERGIES: See below SOCIAL HISTORY: No illicit drug use. REVIEW OF SYSTEMS: CONSTITUTIONAL: Denies fever or chills. HEENT: Denies blurred vision, vision changes, or eye pain. Denies hemoptysis CARDIOVASCULAR: Denies chest pain or pressure. RESPIRATORY: No shortness of breath. GASTROINTESTINAL: See HPI for pertinent findings HEMATOLOGIC: Denies bleeding disorders. GENITOURINARY: Denies any blood in urine or increased urinary frequency. SKIN: Denies pruitis. Denies rash. PHYSICAL EXAM: VITAL SIGNS: Reviewed GENERAL: Well-developed in no acute distress. CHEST: Patient does have bruising noted in the left upper chest wall. Tenderness palpation along the left rib cage. Thora vent in place. HEENT: No sclera icterus. Extraocular movements grossly intact. Moist buccal mucosa. Head is atraumatic, normocephalic. No nasal drainage. ABDOMEN: Soft. Obese. Nondistended. Tenderness with palpation to right lower quadrant. NEUROLOGIC: Alert and oriented. Cranial nerves II through XII grossly intact. Extremities: Able to move all 4 extremities. Patient does have tenderness palpation of the lateral aspect of the left upper leg. No bruising noted. LABORATORY DATA: WBC 15.25 Hgb 13.1 platelets 272 INR 1.0 Sodium 139 potassium 5.3 creatinine 1.88 Troponins negative x 3 UA no evidence of infection no hematuria Serum alcohol level less than 10 IMAGING: CT scan chest abdomen pelvis reports fracture in lateral aspect of left 6th and 7th ribs with 9 mm displacement. A small left hemothorax and adjacent pulmonary contusion versus atelectasis. Trace left pneumothorax with chest chest tube in place Left shoulder and chest x-ray reports a large left pneumothorax lateral left 6th and 7th rib fractures Chest x-ray after chest tube placed reports left pneumothorax has resolved after left chest tube placement Left femur x-ray limited by osteopenia and overlying soft tissue no evidence of displaced fracture seen. ASSESSMENT: 1. Mechanical fall from ladder with trauma to left rib cage 2. Displaced lateral left 6th and 7th rib fractures 3. Large traumatic left pneumothorax status post Thora vent placement 4. Small left hemothorax 5. Left pulmonary contusion 6. A-fib RVR 7. Left upper leg pain likely contusion. No fracture on x-ray 8. Left shoulder pain no evidence of fracture on x-ray PLAN: - Encourage patient to use incentive spirometer - Continue pain management. [place] and Lidoderm patch added. Pain service on consult - Continue regular diet - Patient followed by pulmonary and cardiology service - Chest tube management per pulmonary service - Ok to resume aspirin and plavix - DVT prophylaxis SCDs Physician Hose Inspector note has been reviewed by physician. Signing provider agrees with the documented findings, assessment, and plan of care. Past Medical History Past Medical History: Coronary Artery Disease (CAD), Diabetes Mellitus, Hyperlipidemia Additional Past Medical History / Comment(s): "OCCAS. STOMACH ACHES" History of Any Multi-Drug Resistant Organisms: None Reported Past Surgical History: Appendectomy, Heart Catheterization With Stent, Joint Replacement, Orthopedic Surgery, Tonsillectomy Additional Past Surgical History / Comment(s): CARDIAC STENTS X2, RT KNEE REPLACEMENT, ARTHROSCOPY LULY KNEES Past Anesthesia/Blood Transfusion Reactions: No Reported Reaction Date of Last Stent Placement:: 2006 Past Psychological History: No Psychological Hx Reported Smoking Status: Current every day smoker Past Alcohol Use History: Occasional Past Drug Use History: None Reported Medications and Allergies Home Medications Medication Instructions Recorded Confirmed Type Atorvastatin [Lipitor] 80 mg PO HS 07/13/13 08/29/24 History Clopidogrel [Plavix] 75 mg PO DAILY 07/13/13 08/29/24 History sitaGLIPtin [Januvia] 100 mg PO DAILY 07/13/13 08/29/24 History Aspirin 81 mg PO DAILY 08/29/24 08/29/24 History HYDROcodone/APAP 10-325MG [[place] 1 tab PO Q6H PRN 08/29/24 08/29/24 History 10-325] Ibuprofen [Motrin] 800 mg PO TID PRN 08/29/24 08/29/24 History Insulin Glargine,Hum.rec.anlog 65 units SQ HS 08/29/24 08/29/24 History [Lantus Solostar Pen] Isosorbide Mononitrate ER [Imdur] 30 mg PO DAILY 08/29/24 08/29/24 History Metoprolol Succinate (ER) [Toprol 25 mg PO DAILY 08/29/24 08/29/24 History Xl] Nitroglycerin Sl Tabs [Nitrostat] 0.4 mg SUBLINGUAL Q5M PRN 08/29/24 08/29/24 History [place] 3-6-9 1 cap PO DAILY 08/29/24 08/29/24 History Tamsulosin HCl [Flomax] 0.4 mg PO DAILY 08/29/24 08/29/24 History Vit C/E/Zn/Coppr/Lutein/Zeaxan 1 cap PO BID 08/29/24 08/29/24 History [Preservision Areds 2 Softgel] metFORMIN HCL [Glucophage] 500 mg PO BID 08/29/24 08/29/24 History Allergies Allergy/AdvReac Type Severity Reaction Status Date / Time iodine Allergy Unknown Rash/Hives Verified 08/29/24 10:07 Surgical - Exam Vital Signs Temp Pulse Resp BP Pulse Ox 98.0 F 78 18 102/58 92 L 08/28/24 23:37 08/28/24 23:37 08/28/24 23:37 08/28/24 23:37 08/28/24 23:37 Results - Labs 08/29/24 00:47 08/29/24 00:47 Abnormal Lab Results - Last 24 Hours (Table) 08/29/24 08/29/24 08/29/24 Range/Units 00:47 00:47 00:47 WBC 15.25 H (4.50-10.00) 10*3/uL Immature Gran # 0.08 H (0.00-0.04) 10*3/uL Neutrophils # 12.16 H (1.80-7.70) 10*3/uL Monocytes # 1.24 H (0.20-1.00) 10*3/uL APTT 33.0 H (22.0-30.0) sec Potassium 5.3 H (3.5-5.1) mmol/L Chloride 109 H (98-107) mmol/L Carbon Dioxide 15 L (22-30) mmol/L BUN 33 H (9-20) mg/dL Creatinine 1.88 H (0.66-1.25) mg/dL Glucose 249 H (74-99) mg/dL Alkaline Phosphatase 155 H (38-126) U/L Ur Specific [place] (1.001-1.035) Urine Protein (Negative) 08/29/24 Range/Units 04:56 WBC (4.50-10.00) 10*3/uL Immature Gran # (0.00-0.04) 10*3/uL Neutrophils # (1.80-7.70) 10*3/uL Monocytes # (0.20-1.00) 10*3/uL APTT (22.0-30.0) sec Potassium (3.5-5.1) mmol/L Chloride (98-107) mmol/L Carbon Dioxide (22-30) mmol/L BUN (9-20) mg/dL Creatinine (0.66-1.25) mg/dL Glucose (74-99) mg/dL Alkaline Phosphatase (38-126) U/L Ur Specific [place] 1.037 H (1.001-1.035) Urine Protein Trace H (Negative) Diabetes panel 08/29/24 Range/Units 00:47 Sodium 139 (137-145) mmol/L Potassium 5.3 H (3.5-5.1) mmol/L Chloride 109 H (98-107) mmol/L Carbon Dioxide 15 L (22-30) mmol/L BUN 33 H (9-20) mg/dL Creatinine 1.88 H (0.66-1.25) mg/dL Glucose 249 H (74-99) mg/dL Calcium 9.6 (8.4-10.2) mg/dL AST 29 (17-59) U/L ALT 28 (4-49) U/L Alkaline Phosphatase 155 H (38-126) U/L Total Protein 6.7 (6.3-8.2) g/dL Albumin 4.3 (3.5-5.0) g/dL Calcium panel 08/29/24 Range/Units 00:47 Calcium 9.6 (8.4-10.2) mg/dL Phosphorus 4.2 (2.5-4.5) mg/dL Albumin 4.3 (3.5-5.0) g/dL Pituitary panel 08/29/24 Range/Units 00:47 Sodium 139 (137-145) mmol/L Potassium 5.3 H (3.5-5.1) mmol/L Chloride 109 H (98-107) mmol/L Carbon Dioxide 15 L (22-30) mmol/L BUN 33 H (9-20) mg/dL Creatinine 1.88 H (0.66-1.25) mg/dL Glucose 249 H (74-99) mg/dL Calcium 9.6 (8.4-10.2) mg/dL Adrenal panel 08/29/24 Range/Units 00:47 Sodium 139 (137-145) mmol/L Potassium 5.3 H (3.5-5.1) mmol/L Chloride 109 H (98-107) mmol/L Carbon Dioxide 15 L (22-30) mmol/L BUN 33 H (9-20) mg/dL Creatinine 1.88 H (0.66-1.25) mg/dL Glucose 249 H (74-99) mg/dL Calcium 9.6 (8.4-10.2) mg/dL Total Bilirubin 0.8 (0.2-1.3) mg/dL AST 29 (17-59) U/L ALT 28 (4-49) U/L Alkaline Phosphatase 155 H (38-126) U/L Total Protein 6.7 (6.3-8.2) g/dL Albumin 4.3 (3.5-5.0) g/dL
[2024-08-29 13:24] LABS: Glucose,Whole Blood 390 mg/dL (70-110)
[2024-08-29] MEDS: INSULIN LISPRO (HumaLOG) 100 UNIT/ML 10 mL VL SQ SCH (13:47)
[2024-08-29] MEDS: HYDROmorphone 1 MG/ML 1 ML SYRINGE IVP PRN (15:35)
--- NOTE | 2024-08-29 16:08 | P.PAINPG ---
Objective - Vital Signs Vital signs: Vital Signs Temp 98.2 F 08/29/24 07:35 Pulse 90 08/29/24 07:35 Resp 18 08/29/24 07:35 BP 148/91 08/29/24 07:35 Pulse Ox 99 08/29/24 05:13 FiO2 Intake & Output 08/28/24 08/29/24 08/29/24 18:59 06:59 18:59 Output Total 70 Balance -70 Weight 103.419 kg Output: Chest Tube Drainage 70 Thora-Vent Left Upper 70 Anterior Chest - Labs CBC & Chem 7: 08/29/24 00:47 08/29/24 00:47 Labs: Abnormal Lab Results - Last 24 Hours (Table) 08/29/24 08/29/24 08/29/24 Range/Units 00:47 00:47 00:47 WBC 15.25 H (4.50-10.00) 10*3/uL Immature Gran # 0.08 H (0.00-0.04) 10*3/uL Neutrophils # 12.16 H (1.80-7.70) 10*3/uL Monocytes # 1.24 H (0.20-1.00) 10*3/uL APTT 33.0 H (22.0-30.0) sec Potassium 5.3 H (3.5-5.1) mmol/L Chloride 109 H (98-107) mmol/L Carbon Dioxide 15 L (22-30) mmol/L BUN 33 H (9-20) mg/dL Creatinine 1.88 H (0.66-1.25) mg/dL Glucose 249 H (74-99) mg/dL Alkaline Phosphatase 155 H (38-126) U/L Ur Specific [place] (1.001-1.035) Urine Protein (Negative) 08/29/24 Range/Units 04:56 WBC (4.50-10.00) 10*3/uL Immature Gran # (0.00-0.04) 10*3/uL Neutrophils # (1.80-7.70) 10*3/uL Monocytes # (0.20-1.00) 10*3/uL APTT (22.0-30.0) sec Potassium (3.5-5.1) mmol/L Chloride (98-107) mmol/L Carbon Dioxide (22-30) mmol/L BUN (9-20) mg/dL Creatinine (0.66-1.25) mg/dL Glucose (74-99) mg/dL Alkaline Phosphatase (38-126) U/L Ur Specific [place] 1.037 H (1.001-1.035) Urine Protein Trace H (Negative) PQRS Measure Charge Sheet Comment: HISTORY OF PRESENT ILLNESS: A 73 yr old inpatient male presents today w severe acute L sided rib pain secondary to large L pneumothorax and L 6th-7th rib fractures due to fall from ladder 3 days ago for evaluation. Pt states pain level is provoked at 10 /10 in intensity, constant but waxes & wanes, localized in the L side of chest, sharp in character without shooting pain . Pain is provoked by any movement. Pain is alleviated by medications (Dilaudid 1mg q3h prn, Tyl 650mg q6h prn), repositioning and rest . PMH: OA, CAD, NIDDM II, Hyperlipidemia, aFib PSH: Appendectomy, Heart Catheterization With Stent x2 (2006), Joint Replacement, R Knee Replacement, BL Knee Arthroscopy, Tonsillectomy SH: Daily tobacco use, Occ ETOH use, No illicit drug use FH: Non contributory All: See list Medications include ASA & Plavix (at home) REVIEW OF ORGAN SYSTEMS: CONSTITUTIONAL: No fevers or chills. No recent weight loss. NEUROLOGICAL: + numbness and tingling along the distal extremities. No seizure disorders or headaches. MUSCULOSKELETAL: + pain PSYCHIATRIC: Denies current depression or suicidal thoughts. Physical Examinations : Constitutional : Cooperative , not in acute distress . Neurologic : Cranial nerve II to XII intact. No focal neurological deficits. Psychiatric : alert & oriented x 3. Matching mood & appropriate affect. Judgment & insight intact. Musculoskeletal : Cervical Spine Motor strength in the deltoid and biceps: Normal right side. Normal Left side Motor strength biceps and the wrist extensors: Normal right side . Normal left side Motor strength in the triceps muscle: Normal right side. Normal left side Deep tendon reflexes: Normal at the biceps. Normal at Brachioradialis. Normal at triceps Vertebral body tenderness to deep palpation over Cervical facet loading test: positive bilaterally Spurling test: positive bilaterally Neck distraction test: positive omari aterally Kike sign: positive bilaterally Thoracic spine Diffuse L chest wall TTP Motor strength lower extremities ,thigh and legs 5/5 Right side , 5/5 Left side Deep tendon reflexes : Normal Knee Jerk. Normal Ankle Jerk Vertebral body tenderness over T7, T8 Bird Test positive L T7-8, T8-9 Lumbar facet Loading Test: positive Right / positive Left Range of motion of the lumbar spine F lexion 30 degrees, extension 10 degrees Straight Leg Raise test: Left/ Right positive at degrees Dimitrios test: positive right / positive left. Severe tenderness over the Sacroiliac joint on the Right / Left sides Gaenslen test: positive bilaterally Seated flexion test: positive bilaterally. Sacral spine : Severe tenderness over the Sacroiliac joint: right side / left side Range of motion: Flexion of the lumbar spine <60 degrees Range of motion: Extension of the lumbar spine <20 degrees Gaenslen's Test positive Dimitrios test: positive right side / left side Thigh Thrust Test Sacral Thrust Test Imaging: CXR 08/29/24 reviewed Assessment/ Plan : Large L Pneumothorax, L 6th-7th rib fractures s/p fall 3 days ago Recommendation of medication management. Due to recent Plavix and ASA (08/28/24) use, soonest L TFESI T7-8, T8-9 would be 09/04/24. Continue stopping anticoagulants at this time. All questions answered. I have spent greater than 30 minutes on patient care today. Dr Guadarrama was available by phone for the evaluation of this patient. The time was used to review the medical records including relevant urine studies and Prescription history (MAPs), review of the available imaging, evaluation and examination of the patient, coordination of care with the medical staff and if applicable referring physicians, as well as creation of the medical record PQRS Narrative: Smoking Status Light tobacco smoker Blood Pressure 148/91 Pain Intensity 8 Pain Scale Used Numeric (1 - 10) Scale Used Numeric (1 - 10) Home Medications: Ambulatory Orders Atorvastatin [Lipitor] 80 mg PO HS 07/13/13 Clopidogrel [Plavix] 75 mg PO DAILY 07/13/13 sitaGLIPtin [Januvia] 100 mg PO DAILY 07/13/13 Aspirin 81 mg PO DAILY 08/29/24 HYDROcodone/APAP 10-325MG [[place] 10-325] 1 tab PO Q6H PRN 08/29/24 Ibuprofen [Motrin] 800 mg PO TID PRN 08/29/24 Insulin Glargine,Hum.rec.anlog [Lantus Solostar Pen] 65 units SQ HS 08/29/24 Isosorbide Mononitrate ER [Imdur] 30 mg PO DAILY 08/29/24 Metoprolol Succinate (ER) [Toprol Xl] 25 mg PO DAILY 08/29/24 Nitroglycerin Sl Tabs [Nitrostat] 0.4 mg SUBLINGUAL Q5M PRN 08/29/24 [place] 3-6-9 1 cap PO DAILY 08/29/24 Tamsulosin HCl [Flomax] 0.4 mg PO DAILY 08/29/24 Vit C/E/Zn/Coppr/Lutein/Zeaxan [Preservision Areds 2 Softgel] 1 cap PO BID 08/29/24 metFORMIN HCL [Glucophage] 500 mg PO BID 08/29/24 Controlled Substance Measures - Controlled Substance Measures Is patient prescribed a controlled substance at discharge?: No
[2024-08-29 17:11] LABS: Glucose,Whole Blood 336 mg/dL (70-110)
[2024-08-29] MEDS: ATORVASTATIN 80 MG TAB PO SCH (20:40)
[2024-08-29 21:09] LABS: Glucose,Whole Blood 333 mg/dL (70-110)
[2024-08-30 07:09] LABS: Basophils # (A) 0.06 10*3/uL (0.00-0.10); Basophils % (A) 0.4 %; Eosinophils # (A) 0.09 10*3/uL (0.04-0.35); Eosinophils % (A) 0.7 %; HCT 33.5 % (39.6-50.0); HGB 10.7 g/dL (13.0-17.0); Lymphocytes # (A) 1.91 10*3/uL (0.90-5.00); MCH 29.9 pg (27.0-32.0); MCHC 31.9 g/dL (32.0-37.0); MCV 93.6 fL (80.0-97.0); Mean Platelet Volume 11.7 fL (9.5-12.2); Monocytes # (A) 1.13 10*3/uL (0.20-1.00); Monocytes % (A) 8.3 %; Neutrophils # (A) 10.41 10*3/uL (1.80-7.70); Neutrophils % (A) 76.1 %; Platelet Count 228 10*3/uL (140-440); RBC 3.58 10*6/uL (4.40-5.60); RDW 13.7 % (11.5-14.5); WBC 13.67 10*3/uL (4.50-10.00)
[2024-08-30 07:24] LABS: ALT 22 U/L (4-49); AST 17 U/L (17-59); African American GFR (CKD) 41 (>60 ml/min/1.73 sqM); Albumin 3.8 g/dL (3.5-5.0); Alkaline Phosphatase 100 U/L (38-126); Anion Gap 10 mmol/L; Blood Urea Nitrogen 40 mg/dL (9-20); Calcium 9.4 mg/dL (8.4-10.2); Carbon Dioxide 21 mmol/L (22-30); Chloride 110 mmol/L (98-107); Glucose 183 mg/dL (74-99); Non-African American GFR(CKD) 35 (>60 ml/min/1.73 sqM); Phosphorus 3.4 mg/dL (2.5-4.5); Potassium 4.8 mmol/L (3.5-5.1); Sodium 141 mmol/L (137-145); Total Bilirubin 0.9 mg/dL (0.2-1.3); Total Protein 5.7 g/dL (6.3-8.2)
--- NOTE | 2024-08-30 07:54 | XR ---
EXAMINATION TYPE: XR chest 1V DATE OF EXAM: 08/30/2024 COMPARISON: 08/29/2024 CLINICAL INDICATION: Male, 73 years old with history of ptx; TECHNIQUE: Single frontal view of the chest is obtained. FINDINGS: Low lung volumes with crowded vascular markings. Retrocardiac and left basilar opacity perla ws partial improvement. A left sided pleural catheter is in place but now with visualization of a mod erate-sized pneumothorax measuring 1.9 cm from the apex, 1.9 cm medially, 2.0 cm medial left base. La teral basilar component also seen. Estimated at 30%. IMPRESSION: 1. Left-sided pleural catheter in place. Suspect increased now moderate left-sided pneumothorax, moses mated at 30%. 2. Limited by hypoventilatory changes. Correlate to exclude mild pulmonary vascular congestion. Left basilar opacity shows partial improvement. [facility], , 08/30/2024 7:51 AM
[2024-08-30 08:47] LABS: Glucose,Whole Blood 258 mg/dL (70-110)
[2024-08-30] MEDS: ASPIRIN 81 MG PO SCH (09:03)
[2024-08-30] MEDS: CLOPIDOGREL 75 MG TAB PO SCH (09:03)
--- NOTE | 2024-08-30 11:38 | XR ---
EXAMINATION TYPE: XR chest 1V DATE OF EXAM: 08/30/2024 COMPARISON: Earlier today CLINICAL INDICATION: Male, 73 years old with history of follow up on pneumothorax; TECHNIQUE: Single frontal view of the chest is obtained. FINDINGS: Very low lung volumes again noted crowding of vascular markings. Mild interstitial density is present. Small left pleural effusion with left basilar opacity slightly increased. Left pleural c atheter in place. Subcutaneous emphysema left chest wall. Moderate-sized left pneumothorax redemonstr ated. Similar 1.9 cm apical component. Medial component slightly smaller at 1.7 cm versus 1.9 cm. The medial basilar and lateral basilar components are no longer well seen. IMPRESSION: 1. Left chest tube in place. Slight improvement in the [id number] sized left pneumothorax stil l measuring 1.9 cm at the apex. 1.7 cm medially versus 1.9 cm, previously. Basilar components not as well seen. 2. Increasing small left pleural effusion with adjacent atelectasis and/or consolidation. 3. Marked hypoventilatory changes and possible pulmonary vascular congestion remains. [facility], , 08/30/2024 11:36 AM
[2024-08-30 12:47] LABS: Glucose,Whole Blood 182 mg/dL (70-110)
[2024-08-30] MEDS: HEPARIN SODIUM,PORCINE 5,000 UNIT/ML 1 ML VIAL SQ SCH (13:13)
--- NOTE | 2024-08-30 14:21 | P.PN ---
Subjective Progress Note Date: 08/30/24 Subjective: Patient seen and examined at bedside. No acute events overnight. Continues to have left-sided chest pain slightly worse today compared to yesterday. Pertinent positives and negatives as discussed above, a complete review of systems was performed and all other systems are negative. Vitals Signs Reviewed. General: nontoxic, no distress, appears at stated age Derm: warm, dry, left lateral chest bruising Head: atraumatic, normocephalic, symmetric Eyes: EOMI, no lid lag, anicteric sclera, pupils equal round reactive to light ENT: Nose and ears atraumatic Neck: No thyromegaly, supple Mouth: no lip lesion, mucus membranes moist Cardiovascular: S1S2 reg, no murmur, no edema Lungs: clear to auscultation bilateral, no rhonchi, no rales, no wheeze, no accessory muscle use, Thora vent in place, supplemental oxygen Abdominal: soft, nontender to palpation, no guarding, no appreciable organomegaly Ext: no gross muscle atrophy, muscle strength muscle strength 5 out of 5 in all 4 extremities, no contractures Neuro: CN II-XII grossly intact Psych: Alert, oriented, appropriate affect Data Reviewed Today: Pertinent Labs: WBC 13.67, hemoglobin 10.7, creatinine 1.87, bicarb 21, potassium 4.8, A1c 7.4 Imaging: Chest x-ray independently interpreted, shows persistent left-sided pneumothorax, slightly improved compared to last imaging Assessment and Plan: Mechanical fall Traumatic large left pneumothorax Left lateral 6th and 7th rib fracture Suspected pulmonary contusion Small left hemothorax New onset A-fib with RVR Leukocytosis, reactive secondary to above - Toradol went into place - Surgery and pulmonology following - Pain control with oral Tylenol as needed, oral [place] as needed, IV Dilaudid as needed, lidocaine patch daily - Cardiology note reviewed, patient to be continued on aspirin, Plavix, also started on amiodarone 200 twice daily, no anticoagulation at the moment History of CKD stage III - Creatinine at baseline - Continue to monitor Mild anion gap and non-anion gap metabolic acidosis, resolving Mild hyperkalemia, resolved - On sodium bicarb 650 mg 3 times daily - Continue to monitor Type 2 diabetes Hyperglycemia - Sliding scale insulin, monitor for hypoglycemia Chronic: CAD status post stent Dyslipidemia Hypertension DVT ppx: Subcu heparin Code status: Full code Anticipated discharge place: Pending clinical course Anticipated discharge time: Pending clinical course Objective - Vital Signs Vital signs: Vital Signs Temp 98.5 F 08/29/24 11:32 Pulse 68 08/30/24 13:00 Resp 17 08/30/24 13:00 BP 131/75 08/30/24 13:00 Pulse Ox 97 08/30/24 13:00 FiO2 Intake & Output 08/29/24 08/30/24 08/30/24 18:59 06:59 18:59 Output Total 25 700 Balance -25 -700 Output: Chest Tube Drainage 25 Thora-Vent Left Upper 25 Anterior Chest Urine 700 Other: # Voids 3 # Bowel Movements 0 - Labs CBC & Chem 7: 08/30/24 06:47 08/30/24 06:44 Labs: Abnormal Lab Results - Last 24 Hours (Table) 08/29/24 08/29/24 08/30/24 Range/Units 17:10 21:08 06:44 WBC (4.50-10.00) 10*3/uL RBC (4.40-5.60) 10*6/uL Hgb (13.0-17.0) g/dL Hct (39.6-50.0) % MCHC (32.0-37.0) g/dL Immature Gran # (0.00-0.04) 10*3/uL Neutrophils # (1.80-7.70) 10*3/uL Monocytes # (0.20-1.00) 10*3/uL Chloride 110 H (98-107) mmol/L Carbon Dioxide 21 L (22-30) mmol/L BUN 40 H (9-20) mg/dL Creatinine 1.87 H (0.66-1.25) mg/dL Glucose 183 H (74-99) mg/dL POC Glucose (mg/dL) 336 H 333 H (70-110) mg/dL Hemoglobin A1c (<=6.0) % Total Protein 5.7 L (6.3-8.2) g/dL 08/30/24 08/30/24 08/30/24 Range/Units 06:47 06:48 08:44 WBC 13.67 H (4.50-10.00) 10*3/uL RBC 3.58 L (4.40-5.60) 10*6/uL Hgb 10.7 L (13.0-17.0) g/dL Hct 33.5 L (39.6-50.0) % MCHC 31.9 L (32.0-37.0) g/dL Immature Gran # 0.07 H (0.00-0.04) 10*3/uL Neutrophils # 10.41 H (1.80-7.70) 10*3/uL Monocytes # 1.13 H (0.20-1.00) 10*3/uL Chloride (98-107) mmol/L Carbon Dioxide (22-30) mmol/L BUN (9-20) mg/dL Creatinine (0.66-1.25) mg/dL Glucose (74-99) mg/dL POC Glucose (mg/dL) 258 H (70-110) mg/dL Hemoglobin A1c 7.4 H (<=6.0) % Total Protein (6.3-8.2) g/dL 08/30/24 Range/Units 12:45 WBC (4.50-10.00) 10*3/uL RBC (4.40-5.60) 10*6/uL Hgb (13.0-17.0) g/dL Hct (39.6-50.0) % MCHC (32.0-37.0) g/dL Immature Gran # (0.00-0.04) 10*3/uL Neutrophils # (1.80-7.70) 10*3/uL Monocytes # (0.20-1.00) 10*3/uL Chloride (98-107) mmol/L Carbon Dioxide (22-30) mmol/L BUN (9-20) mg/dL Creatinine (0.66-1.25) mg/dL Glucose (74-99) mg/dL POC Glucose (mg/dL) 182 H (70-110) mg/dL Hemoglobin A1c (<=6.0) % Total Protein (6.3-8.2) g/dL
--- NOTE | 2024-08-30 14:32 | P.PN ---
Subjective Progress Note Date: 08/30/24 SURGICAL PROGRESS NOTE CHIEF COMPLAINT: Fall HISTORY OF PRESENT ILLNESS: Patient remains in the ER. Patient has chest tube in place. Unfortunately chest tube was at intermittent suction. Chest x-ray re ported suspect increased now moderate left-sided pneumothorax estimated at 30%. Chest tube placed to continuous suction and repeat chest x-ray reports slight improvement in small to moderate size left pneumothorax. Patient has pain taking a deep breath. He also reports cough and phlegm. He is on 2 L of oxygen. Afebrile. WBC is down from 15-13.6 Hgb 10.7 platelets 228 creatinine 1.87 PHYSICAL EXAM: VITAL SIGNS: Reviewed. GENERAL: Well-developed in no acute distress. CHEST: Thora vent chest tube in place bruising noted on left chest wall. ABDOMEN: Soft. Nondistended. Nontender. NEUROLOGIC: Alert and oriented. Cranial nerves II through XII grossly intact. ASSESSMENT: 1. Mechanical fall from ladder with trauma to left rib cage 2. Displaced lateral left 6th and 7th rib fractures 3. Large traumatic left pneumothorax status post Thora vent placement 4. Small left hemothorax 5. Left pulmonary contusion 6. A-fib RVR 7. Left upper leg pain likely contusion. No fracture on x-ray 8. Left shoulder pain no evidence of fracture on x-ray PLAN: - Continue pain management: IV Dilaudid, [place], Lidoderm patch - Encourage patient to use incentive spirometer - Continue chest tube management - Repeat chest x-ray in a.m. - DVT prophylaxis added subcu heparin Physician Band Booker note has been reviewed by physician. Signing provider agrees with the documented findings, assessment, and plan of care. Attestation Patient seen and examined at bedside. Status post mechanical fall from ladder with trauma to left rib cage 3 days prior to his emergency department arrival. He was found to have pneumothorax and Thora vent was placed. Chest x-ray performed this morning does show pneumothorax estimated at about 30%. However, on evaluation, it appears that his atrium was set to low intermittent suction rather than continuous suction. Repeat chest x-ray to be performed on c ontinuous suction. Nurse was educated. Possibility of CTS evaluation of patient as well. Continue chest tube management. Nabil Bhakta, Objective - Vital Signs Vital signs: Vital Signs Temp 98.5 F 08/29/24 11:32 Pulse 68 08/30/24 13:00 Resp 17 08/30/24 13:00 BP 131/75 08/30/24 13:00 Pulse Ox 97 08/30/24 13:00 FiO2 Intake & Output 08/29/24 08/30/24 08/30/24 18:59 06:59 18:59 Output Total 25 700 Balance -25 -700 Output: Chest Tube Drainage 25 Thora-Vent Left Upper 25 Anterior Chest Urine 700 Other: # Voids 3 # Bowel Movements 0 - Labs CBC & Chem 7: 08/31/24 07:57 08/31/24 07:57 Labs: Abnormal Lab Results - Last 24 Hours (Table) 08/29/24 08/29/24 08/30/24 Range/Units 17:10 21:08 06:44 WBC (4.50-10.00) 10*3/uL RBC (4.40-5.60) 10*6/uL Hgb (13.0-17.0) g/dL Hct (39.6-50.0) % MCHC (32.0-37.0) g/dL Immature Gran # (0.00-0.04) 10*3/uL Neutrophils # (1.80-7.70) 10*3/uL Monocytes # (0.20-1.00) 10*3/uL Chloride 110 H (98-107) mmol/L Carbon Dioxide 21 L (22-30) mmol/L BUN 40 H (9-20) mg/dL Creatinine 1.87 H (0.66-1.25) mg/dL Glucose 183 H (74-99) mg/dL POC Glucose (mg/dL) 336 H 333 H (70-110) mg/dL Hemoglobin A1c (<=6.0) % Total Protein 5.7 L (6.3-8.2) g/dL 08/30/24 08/30/24 08/30/24 Range/Units 06:47 06:48 08:44 WBC 13.67 H (4.50-10.00) 10*3/uL RBC 3.58 L (4.40-5.60) 10*6/uL Hgb 10.7 L (13.0-17.0) g/dL Hct 33.5 L (39.6-50.0) % MCHC 31.9 L (32.0-37.0) g/dL Immature Gran # 0.07 H (0.00-0.04) 10*3/uL Neutrophils # 10.41 H (1.80-7.70) 10*3/uL Monocytes # 1.13 H (0.20-1.00) 10*3/uL Chloride (98-107) mmol/L Carbon Dioxide (22-30) mmol/L BUN (9-20) mg/dL Creatinine (0.66-1.25) mg/dL Glucose (74-99) mg/dL POC Glucose (mg/dL) 258 H (70-110) mg/dL Hemoglobin A1c 7.4 H (<=6.0) % Total Protein (6.3-8.2) g/dL 08/30/24 Range/Units 12:45 WBC (4.50-10.00) 10*3/uL RBC (4.40-5.60) 10*6/uL Hgb (13.0-17.0) g/dL Hct (39.6-50.0) % MCHC (32.0-37.0) g/dL Immature Gran # (0.00-0.04) 10*3/uL Neutrophils # (1.80-7.70) 10*3/uL Monocytes # (0.20-1.00) 10*3/uL Chloride (98-107) mmol/L Carbon Dioxide (22-30) mmol/L BUN (9-20) mg/dL Creatinine (0.66-1.25) mg/dL Glucose (74-99) mg/dL POC Glucose (mg/dL) 182 H (70-110) mg/dL Hemoglobin A1c (<=6.0) % Total Protein (6.3-8.2) g/dL
[2024-08-30] MEDS: HYDROcodone/APAP 5-325MG 1 EACH TAB PO PRN (15:26)
[2024-08-30 17:06] LABS: Glucose,Whole Blood 372 mg/dL (70-110)
[2024-08-30 20:23] LABS: Glucose,Whole Blood 397 mg/dL (70-110)
--- NOTE | 2024-08-30 22:54 | P.PN ---
Subjective Progress Note Date: 08/30/24 Patient presented to emergency department late last night after falling off a l adder 3 days ago. Reportedly, was cutting branches from a tree and fell approximately 10 feet. Landed on his left side. Denies head trauma. On arrival also complaining of some shortness of breath. Tachycardic. Chest x-ray showing a large left-sided pneumothorax. lateral left 6th and 7th rib fractures. ER physician placed a left-sided ThoraVent. Did have a follow-up CT of chest, abdomen, pelvis showing trace left-sided pneumothorax with the ThoraVent catheter in place. Small hemothorax with associated pulmonary contusion or atelectasis. Redemonstration of left lateral 6th and 7th rib fractures with 9 mm displacement. Also, patient was noted to be to be in atrial fibrillation with RVR, and was bolused with 20 mg of IV Cardizem. Patient being seen in the emergency department. On 3 L/min nasal cannula. SpO2 reading 99%. Not in any respiratory distress. Blood pressure is normotensive. Nontachycardic. Normal saline infusing at 75 mg/h. As needed Dilaudid was ordered for pain . Pain described as sharp and rated 10 out of 10 with coughing or deep breathing or any movements. ThoraVent to suction and atrium at-20 cm H2O. Does have minimal intermittent air leaking. 70 cc of sanguinous output in collection chamber. CBC: WBC count 15.3 hemoglobin 13.1 g/dL, platelets 272. CMP: Sodium 139, potassium 5.3, chloride 109, serum bicarb 15, BUN 33, creatinine 1.88, glucose 249. Troponin less than 0.012. LFTs not elevated. Urinalysis unremarkable. Serum alcohol level less than 10. Current vital signs: Temperature 98.9, heart rate 94 bpm, blood pressure 145/91 mmHg, SpO2 reading 98% on 3 L/min nasal cannula. On 08/30/2024, the patient is being seen for a follow-up. Still complaining of pain across the left chest which is atraumatic. As the patient also sustained a pneumothorax and rib fractures. Left-sided chest tube is in place. The patient has a Thora vent in place. There is a very tiny left apical pneumothorax. Nevertheless, the patient is not having any air leak in the Thora vent and output from the tube is minimal and stable over the past 24 hours. Hemoglobin remained stable at 10.7. The white cell count is 13.6. Platelet count is at 228. Oxygenation remained stable and the patient is currently on 2 L of oxygen by nasal cannula with a pulse ox of 99%. The patient remains on aspirin and Plavix. The patient remains on amiodarone 200 mg p.o. twice a day. Patient is also on Toprol 25 mg p.o. daily. The patient is on normal saline rate of 75 cc an hour. The patient receiving Dilaudid for pain control 0.5 to 1 mg every 3-6 hours. [place] 5 was added also to the regimen and the patient was given lidocaine patch. No altered mentation for now. No other specific complaints. As mentioned, the patient has a displaced lateral left 6th and 7th fracture and a pneumothorax that has recovered. He remains atrial fibrillation, rate is under better control. He also has pain in the left upper extremity and shoulder without any evidence of fractures. Objective - Vital Signs Vital signs: Vital Signs Temp 98.3 F 08/30/24 20:00 Pulse 66 08/30/24 20:00 Resp 18 08/30/24 20:00 BP 124/71 08/30/24 20:00 Pulse Ox 99 08/30/24 20:00 FiO2 Intake & Output 08/30/24 08/30/24 08/31/24 06:59 18:59 06:59 Intake Total 120 Output Total 700 410 Balance -700 -290 Weight 103.419 kg Intake: Oral 120 Output: Chest Tube Drainage 110 Thora-Vent Left Upper 110 Anterior Chest Urine 700 300 Other: Voiding Method Urinal Urinal # Voids 3 1 # Bowel Movements 0 - Exam GENERAL EXAM: Alert, 73-year-old male, resting comfortably on 2 L/min nasal c annula, in no respiratory distresss. HEAD: Normocephalic and atraumatic EYES: Normal reaction of pupils, equal size. NOSE: Clear with pink turbinates. THROAT: No erythema or exudates. NECK: No masses, no JVD. Trachea is midline. CHEST: ThoraVent left chest wall hooked to atrium with suction -20 cm H2O. no evidence of any air leak.. No subcutaneous emphysema or crepitus palpated on chest wall. LUNGS: Equal air entry with no crackles, wheeze, rhonchi or dullness. No conversational dyspnea or accessory muscle use.. CVS: S1 and S2 normal with no audible murmur, regular rhythm. No extra heart sounds ABDOMEN: No hepatosplenomegaly, active bowel sounds, no guarding or rigidity. SPINE: No scoliosis or deformity SKIN: No rashes CENTRAL NERVOUS SYSTEM: No focal deficits, tone is normal in all 4 extremities. EXTREMITIES: There is no peripheral edema, clubbing, or cyanosis. Peripheral pulses are intact. - Labs CBC & Chem 7: 08/30/24 06:47 08/30/24 06:44 Labs: Abnormal Lab Results - Last 24 Hours (Table) 08/30/24 08/30/24 08/30/24 Range/Units 06:44 06:47 06:48 WBC 13.67 H (4.50-10.00) 10*3/uL RBC 3.58 L (4.40-5.60) 10*6/uL Hgb 10.7 L (13.0-17.0) g/dL Hct 33.5 L (39.6-50.0) % MCHC 31.9 L (32.0-37.0) g/dL Immature Gran # 0.07 H (0.00-0.04) 10*3/uL Neutrophils # 10.41 H (1.80-7.70) 10*3/uL Monocytes # 1.13 H (0.20-1.00) 10*3/uL Chloride 110 H (98-107) mmol/L Carbon Dioxide 21 L (22-30) mmol/L BUN 40 H (9-20) mg/dL Creatinine 1.87 H (0.66-1.25) mg/dL Glucose 183 H (74-99) mg/dL POC Glucose (mg/dL) (70-110) mg/dL Hemoglobin A1c 7.4 H (<=6.0) % Total Protein 5.7 L (6.3-8.2) g/dL 08/30/24 08/30/24 08/30/24 Range/Units 08:44 12:45 17:02 WBC (4.50-10.00) 10*3/uL RBC (4.40-5.60) 10*6/uL Hgb (13.0-17.0) g/dL Hct (39.6-50.0) % MCHC (32.0-37.0) g/dL Immature Gran # (0.00-0.04) 10*3/uL Neutrophils # (1.80-7.70) 10*3/uL Monocytes # (0.20-1.00) 10*3/uL Chloride (98-107) mmol/L Carbon Dioxide (22-30) mmol/L BUN (9-20) mg/dL Creatinine (0.66-1.25) mg/dL Glucose (74-99) mg/dL POC Glucose (mg/dL) 258 H 182 H 372 H (70-110) mg/dL Hemoglobin A1c (<=6.0) % Total Protein (6.3-8.2) g/dL 08/30/24 Range/Units 20:21 WBC (4.50-10.00) 10*3/uL RBC (4.40-5.60) 10*6/uL Hgb (13.0-17.0) g/dL Hct (39.6-50.0) % MCHC (32.0-37.0) g/dL Immature Gran # (0.00-0.04) 10*3/uL Neutrophils # (1.80-7.70) 10*3/uL Monocytes # (0.20-1.00) 10*3/uL Chloride (98-107) mmol/L Carbon Dioxide (22-30) mmol/L BUN (9-20) mg/dL Creatinine (0.66-1.25) mg/dL Glucose (74-99) mg/dL POC Glucose (mg/dL) 397 H (70-110) mg/dL Hemoglobin A1c (<=6.0) % Total Protein (6.3-8.2) g/dL Assessment and Plan Assessment: Fall from ladder, approximately 10 feet resulting in left lateral displaced rib fractures 6 and 7, traumatic left-sided pneumothorax, hemothorax, with associated atelectasis or more likely pulmonary contusion. Status post Thora vent insertion, follow-up CT of chest, abdomen, pelvis showing trace left-sided pneumothorax with the ThoraVent catheter in place. Small he mothorax with associated pulmonary contusion or atelectasis. Redemonstration of left lateral 6th and 7th rib fractures with 9 mm displacement. No evidence of any air leak through the Thora vent and the chest x-ray shows very tiny left apical pneumothorax. The hemoglobin is down to 10.7. Nevertheless, there is no evidence send in the bleeding and we will continue monitoring the hemoglobin for now. Chest wall pain secondary to above, currently on lidocaine patch, [place] and Dilaudid for pain control Acute hypoxemic respiratory failure, currently on 3 L/min nasal cannula, secondary to above New onset atrial fibrillation with RVR, likely secondary to above, currently normal sinus Chronic kidney disease stage III Hypertension History of hyperlipidemia History of coronary artery disease with previous PCI/stents Diabetes mellitus type 2 Obesity, BMI 31.8 kg/m Plan: Patient status post ThoraVent insertion and the floor vent t will be attached to waterseal and suction will be taken off. Daily chest x-rays Dilaudid for pain control Lidocaine patch [place] Oxygenation remained stable and the patient is currently on 2 L of oxygen by nasal cannula Hemoglobin is stable proBNP is not elevated Resume home medication including amiodarone 200 mg p.o. twice a day, metoprolol 25 mg XL 1 tablet a day Hemodynamically stable. Will continue to follow.
[2024-08-31 06:59] LABS: Glucose,Whole Blood 266 mg/dL (70-110)
--- NOTE | 2024-08-31 07:27 | XR ---
EXAMINATION TYPE: XR chest 2V DATE OF EXAM: 08/31/2024 6:49 AM COMPARISON: 08/30/2024 CLINICAL INDICATION: Male, 73 years old with history of follow up on pneumothorax, , TECHNIQUE: PA and lateral views FINDINGS: Left-sided Thoravent catheter now present. There is redemonstrated left-sided pneumothorax. Apical co mponent measuring 2.2 cm versus 1.9 cm, previously. Medial component 1.9 cm versus 1.7 cm, previously . Basilar components not well seen. Ongoing small left pleural effusion with patchy left basilar opac ity. Increasing patchy medial right basilar opacity. Mild interstitial density remains. IMPRESSION: 1. Exchange to a left-sided Thora vent catheter. [id number] left pneumothorax remains. Basilar components is no longer well seen. Apical and medial components remain, similar to minimally larger. 2. Ongoing small left pleural effusion with adjacent atelectasis and/or consolidation. Slight worseni ng opacity at the right base, probably atelectasis. 3. There may be mild pulmonary vascular congestion which persists. [facility], , 08/31/2024 7:25 AM
[2024-08-31] MEDS: TAMSULOSIN 0.4 MG CAP.ER.24H PO SCH (08:20)
[2024-08-31 08:29] LABS: Basophils # (A) 0.05 10*3/uL (0.00-0.10); Basophils % (A) 0.6 %; Eosinophils % (A) 3.6 %; HCT 32.4 % (39.6-50.0); HGB 10.3 g/dL (13.0-17.0); Lymphocytes # (A) 1.44 10*3/uL (0.90-5.00); Lymphocytes % (A) 17.1 %; MCH 29.7 pg (27.0-32.0); MCHC 31.8 g/dL (32.0-37.0); MCV 93.4 fL (80.0-97.0); Mean Platelet Volume 11.5 fL (9.5-12.2); Monocytes # (A) 0.74 10*3/uL (0.20-1.00); Monocytes % (A) 8.8 %; Neutrophils # (A) 5.85 10*3/uL (1.80-7.70); Neutrophils % (A) 69.3 %; Platelet Count 214 10*3/uL (140-440); RBC 3.47 10*6/uL (4.40-5.60); WBC 8.43 10*3/uL (4.50-10.00)
[2024-08-31 08:53] LABS: African American GFR (CKD) 54 (>60 ml/min/1.73 sqM); Anion Gap 8 mmol/L; Blood Urea Nitrogen 39 mg/dL (9-20); Calcium 9.1 mg/dL (8.4-10.2); Carbon Dioxide 21 mmol/L (22-30); Chloride 109 mmol/L (98-107); Glucose 311 mg/dL (74-99); Non-African American GFR(CKD) 46 (>60 ml/min/1.73 sqM); Potassium 4.8 mmol/L (3.5-5.1); Sodium 138 mmol/L (137-145)
--- NOTE | 2024-08-31 09:13 | P.GSCN ---
History of Present Illness Consult date: 08/31/24 Reason for Consult: Pneumothorax status post Thora-vent placement by the emergency room physicians Requesting physician: Rosa Yun History of present illness: This is a 73-year-old gentleman who follows outpatient with Dr. Romero for internal medicine. He has a previous medical history of coronary artery disease with previous PCI, hypertension, hyperlipidemia, chronic kidney disease stage III, diabetes mellitus, and current tobacco dependence. Apparently he fell off a ladder on Tuesday and landed on his left side. Initially he did not present to the emergency room for evaluation as he stated he has had broken ribs in the past and did not feel it was necessary. Unfortunately his chest pain and shortn ess of breath continue to increase so he presented to [facility] emergency room on Tuesday. He had a chest x-ray as well as CT of the chest demonstrating left sided 6th and 7th rib fractures along with left-sided pneumothorax. A Thora vent was placed by the emergency room physicians with s ome but not complete reexpansion of the left lung. He was also noted to be in A-fib with RVR which was treated with IV Cardizem. He was admitted for evaluation and treatment with consultation placed to pulmonology as well as pain management. Patient was seen by trauma services with subsequent consultation placed to cardiothoracic surgery for management of pneumothorax, Thora-vent. Review of Systems Review of systems was completed and was negative except as noted - Cardiovascular Reports chest pain, Reports shortness of breath Past Medical History Past Medical History: Coronary Artery Disease (CAD), Cancer, Diabetes Mellitus, Hyperlipidemia, Hypertension Additional Past Medical History / Comment(s): "OCCAS. STOMACH ACHES", bladder cancer with surgery History of Any Multi-Drug Resistant Organisms: None Reported Past Surgical History: Appendectomy, Heart Catheterization With Stent, Joint Replacement, Orthopedic Surgery, Tonsillectomy Additional Past Surgical History / Comment(s): CARDIAC STENTS X5, RT KNEE REPLACEMENT, ARTHROSCOPY LULY KNEES, left arm fracture and tendon injury that required surgery, cateract surgery bilateral eye, surgery for bladder cancer removal Past Anesthesia/Blood Transfusion Reactions: No Reported Reaction Date of Last Stent Placement:: 2023 Past Psychological History: No Psychological Hx Reported Smoking Status: Current every day smoker Past Alcohol Use History: Occasional Past Drug Use History: None Reported - Past Family History Mother Family Medical History: Cancer Additional Family Medical History / Comment(s): Colon cancer Father Additional Family Medical History / Comment(s): Hemodialysis Medications and Allergies Home Medications Medication Instructions Recorded Confirmed Type Atorvastatin [Lipitor] 80 mg PO HS 07/13/13 08/29/24 History Clopidogrel [Plavix] 75 mg PO DAILY 07/13/13 08/29/24 History sitaGLIPtin [Januvia] 100 mg PO DAILY 07/13/13 08/29/24 History Aspirin 81 mg PO DAILY 08/29/24 08/29/24 History HYDROcodone/APAP 10-325MG [[place] 1 tab PO Q6H PRN 08/29/24 08/29/24 History 10-325] Ibuprofen [Motrin] 800 mg PO TID PRN 08/29/24 08/29/24 History Insulin Glargine,Hum.rec.anlog 65 units SQ HS 08/29/24 08/29/24 History [Lantus Solostar Pen] Isosorbide Mononitrate ER [Imdur] 30 mg PO DAILY 08/29/24 08/29/24 History Metoprolol Succinate (ER) [Toprol 25 mg PO DAILY 08/29/24 08/29/24 History Xl] Nitroglycerin Sl Tabs [Nitrostat] 0.4 mg SUBLINGUAL Q5M PRN 08/29/24 08/29/24 History [place] 3-6-9 1 cap PO DAILY 08/29/24 08/29/24 History Tamsulosin HCl [Flomax] 0.4 mg PO DAILY 08/29/24 08/29/24 History Vit C/E/Zn/Coppr/Lutein/Zeaxan 1 cap PO BID 08/29/24 08/29/24 History [Preservision Areds 2 Softgel] metFORMIN HCL [Glucophage] 500 mg PO BID 08/29/24 08/29/24 History Allergies Allergy/AdvReac Type Severity Reaction Status Date / Time iodine Allergy Unknown Rash/Hives Verified 08/29/24 10:07 Surgical - Exam Vital Signs Temp Pulse Resp BP Pulse Ox 98.0 F 78 18 102/58 92 L 08/28/24 23:37 08/28/24 23:37 08/28/24 23:37 08/28/24 23:37 08/28/24 23:37 CONSTITUTIONAL: Awake and alert, appears mostly comfortable, cooperative, well- developed, well-nourished, complains of pain with deep breath and movement, no acute distress EYES: Pupils equal, round, reactive to light, normal ocular movement ENT: Moist mucous membranes without oral lesions present NECK: No masses, no bruits, trachea midline RESPIRATORY: Lungs sounds diminished bilaterally. Respirations even, non labored. Currently on 2 L nasal cannula with oxygen saturation 99%. Strong cough. No chest wall deformities. No clubbing or cyanosis present CARDIOVASCULAR: S1, S2 present. Regular rate and rhythm, sinus rhythm on telemetry. Palpable peripheral pulses bilaterally. No edema present. No calf pain or tenderness noted GASTROINTESTINAL: Abdomen soft, nontender, nondistended without masses or organomegaly noted. There is no rebound or guarding present. Active bowel sounds present 4 quadrants. GENITOURINARY: Deferred INTEGUMENTARY: Skin is warm and dry NEUROLOGIC: Cranial nerves II through XII intact, normal coordination, no obvious motor or sensory deficits, speech is normal MUSKULOSKELETAL: Able to move all extremities, strength equal bilaterally, normal posture PSYCHIATRIC: Alert and oriented to person place and time, appropriate affect, intact judgment and insight Results - Labs 08/31/24 07:57 08/30/24 06:44 Abnormal Lab Results - Last 24 Hours (Table) 08/30/24 08/30/24 08/30/24 Range/Units 06:48 12:45 17:02 RBC (4.40-5.60) 10*6/uL Hgb (13.0-17.0) g/dL Hct (39.6-50.0) % MCHC (32.0-37.0) g/dL Immature Gran # (0.00-0.04) 10*3/uL POC Glucose (mg/dL) 182 H 372 H (70-110) mg/dL Hemoglobin A1c 7.4 H (<=6.0) % 08/30/24 08/31/24 08/31/24 Range/Units 20:21 06:58 07:57 RBC 3.47 L (4.40-5.60) 10*6/uL Hgb 10.3 L (13.0-17.0) g/dL Hct 32.4 L (39.6-50.0) % MCHC 31.8 L (32.0-37.0) g/dL Immature Gran # 0.05 H (0.00-0.04) 10*3/uL POC Glucose (mg/dL) 397 H 266 H (70-110) mg/dL Hemoglobin A1c (<=6.0) % Diabetes panel 08/30/24 Range/Units 06:48 Hemoglobin A1c 7.4 H (<=6.0) % - Imaging Chest x-ray: report reviewed, image reviewed Assessment and Plan Assessment: Left-sided rib fracture with pneumothorax after fall off ladder, small hemothorax, pulmonary contusion, status post Thora-vent placement by the emergency room physicians Chest pain, shortness of breath secondary to above New onset A-fib with RVR, currently sinus History of coronary artery disease with previous PCI Hypertension Hyperlipidemia Chronic kidney disease stage III Diabetes mellitus, insulin-dependent, currently uncontrolled with A1c 7.4%, blood sugars over 200s this admission Current tobacco dependence Plan: The patient was seen and examined this morning sitting up in bed on the cardiac stepdown unit in no acute distress although does complain of expected pain with coughing and deep inspiration. He was eating breakfast without difficulty. Case discussed and films reviewed with Dr. Broderick. Thora-vent present to waterseal without any air leak present. We did attach a T-piece and suctioned small amount of clot, Thora-vent was attached to -20 cm continuous wall suction with intermittent airleak present. Will continue to wall suction for another 24 hours. Repeat chest x-ray in the morning. Incentive spirometry ordered and should be encouraged. Increase activity, ambulate as tolerated, extension tubing added to atrium to allow patient to ambulate in his room. Pain control per current medication regimen, pain services. A-fib management per internal medicine/trauma services. Patient needs better control of his blood sugars in order to promote healing, diet was switched to consistent carb. Medical management of other comorbidities per internal medicine, trauma, pulmonology. Thank you for this consult, we will continue to follow along and make further recommendations as appropriate. I have personally seen and examined the patient, performed the documentation and the assessment and plan as written. Number of minutes spent on the visit: 30. SINTIA Cheung
[2024-08-31 11:46] LABS: Glucose,Whole Blood 296 mg/dL (70-110)
[2024-08-31] MEDS: methocarbamoL 500 MG TAB PO SCH (13:05)
--- NOTE | 2024-08-31 15:09 | P.PN ---
Subjective Progress Note Date: 08/31/24 SURGICAL PROGRESS NOTE CHIEF COMPLAINT: Fall HISTORY OF PRESENT ILLNESS: Patient is currently on the cardiac floor. Still complaining of left-sided rib pain. Chest x-ray had shown small to moderate left pneumothorax. Patient seen by cardiothoracic team and chest tube was placed back to suction. Patient is on room air. WBC 8.43 Hgb 10.3 platelets 214 creatinine 1.48 glucose 296 PHYSICAL EXAM: VITAL SIGNS: Reviewed. GENERAL: Well-developed in no acute distress. CHEST: Thora vent chest tube in place bruising noted on left chest wall. ABDOMEN: Soft. Nondistended. Nontender. NEUROLOGIC: Alert and oriented. Cranial nerves II through XII grossly intact. ASSESSMENT: 1. Mechanical fall from ladder with trauma to left rib cage 2. Displaced lateral left 6th and 7th rib fractures 3. Large traumatic left pneumothorax status post Thora vent placement 4. Small left hemothorax 5. Left pulmonary contusion 6. A-fib RVR 7. Left upper leg pain likely contusion. No fracture on x-ray 8. Left shoulder pain no evidence of fracture on x-ray PLAN: - Continue pain management: IV Dilaudid, Cameron, Lidoderm patch. Robaxin added - Encourage patient to use incentive spirometer. Discussed with nursing staff for patient to have another incentive spirometer - Chest tube management per cardiothoracic team - Follow-up on chest x-ray in a.m. - Agree with consistent carbohydrate diet - DVT prophylaxis added subcu heparin Physician [employer] note has been reviewed by physician. Signing provider agrees with the documented findings, assessment, and plan of care. Objective - Vital Signs Vital signs: Vital Signs Temp 98.3 F 08/31/24 08:00 Pulse 72 08/31/24 14:00 Resp 18 08/31/24 14:00 BP 132/70 08/31/24 12:00 Pulse Ox 97 08/31/24 12:00 FiO2 Intake & Output 08/30/24 08/31/24 08/31/24 18:59 06:59 18:59 Intake Total 120 415 Output Total 410 1200 716 Balance -290 -1200 -301 Weight 103.419 kg 107.5 kg Intake: Oral 120 415 Output: Chest Tube Drainage 110 66 Thora-Vent Left Upper 110 66 Anterior Chest Urine 300 1200 650 Other: Voiding Method Urinal Urinal Urinal # Voids 1 1 - Labs CBC & Chem 7: 08/31/24 07:57 08/31/24 07:57 Labs: Abnormal Lab Results - Last 24 Hours (Table) 08/30/24 08/30/24 08/31/24 Range/Units 17:02 20:21 06:58 RBC (4.40-5.60) 10*6/uL Hgb (13.0-17.0) g/dL Hct (39.6-50.0) % MCHC (32.0-37.0) g/dL Immature Gran # (0.00-0.04) 10*3/uL Chloride (98-107) mmol/L Carbon Dioxide (22-30) mmol/L BUN (9-20) mg/dL Creatinine (0.66-1.25) mg/dL Glucose (74-99) mg/dL POC Glucose (mg/dL) 372 H 397 H 266 H (70-110) mg/dL 08/31/24 08/31/24 08/31/24 Range/Units 07:57 07:57 11:45 RBC 3.47 L (4.40-5.60) 10*6/uL Hgb 10.3 L (13.0-17.0) g/dL Hct 32.4 L (39.6-50.0) % MCHC 31.8 L (32.0-37.0) g/dL Immature Gran # 0.05 H (0.00-0.04) 10*3/uL Chloride 109 H (98-107) mmol/L Carbon Dioxide 21 L (22-30) mmol/L BUN 39 H (9-20) mg/dL Creatinine 1.48 H (0.66-1.25) mg/dL Glucose 311 H (74-99) mg/dL POC Glucose (mg/dL) 296 H (70-110) mg/dL
--- NOTE | 2024-08-31 15:57 | P.PN ---
Subjective Progress Note Date: 08/31/24 Subjective: Patient seen and examined at bedside. Seen by cardiothoracic surgery today, had small clots left at a Thora vent, vent was hooked up to wall suction at -20 cm H2O Pertinent positives and negatives as discussed above, a complete review of systems was performed and all other systems are negative. Gen: In NAD, non-toxic HEENT: normocephalic, atraumatic, hearing acuity is intant, mucous membranes moist CVS: perfusing all extremities well, no pitting edema, Respiratory: symmetric chest expansion, no accessory muscle use, GI: soft, NTTP, ND, : no suprapubic tenderness, no CVA tenderness MSK/Derm: no rashes, cyanosis Neuro: CN II-XII intact, no motor weakness, Psych: cooperative, euthymic mood, judgment and insight is intact Assessment and Plan: Mechanical fall Traumatic large left pneumothorax Left lateral 6th and 7th rib fracture Suspected pulmonary contusion Small left hemothorax New onset A-fib with RVR Leukocytosis, reactive secondary to above - Toradol went into place - Surgery and pulmonology following - Pain control with oral Tylenol as needed, oral [place] as needed, IV Dilaudid as needed, lidocaine patch daily - Cardiology note reviewed, patient to be continued on aspirin, Plavix, also started on amiodarone 200 twice daily, no anticoagulation at the moment History of CKD stage III - Creatinine at baseline - Continue to monitor Mild anion gap and non-anion gap metabolic acidosis, resolving Mild hyperkalemia, resolved - On sodium bicarb 650 mg 3 times daily - Continue to monitor Type 2 diabetes Hyperglycemia - Sliding scale insulin, monitor for hypoglycemia Chronic: CAD status post stent Dyslipidemia Hypertension DVT ppx: Subcu heparin Code status: Full code Anticipated discharge place: Pending clinical course Anticipated discharge time: Pending clinical course Objective - Vital Signs Vital signs: Vital Signs Temp 98.3 F 08/31/24 08:00 Pulse 72 08/31/24 14:00 Resp 18 08/31/24 14:00 BP 132/70 08/31/24 12:00 Pulse Ox 97 08/31/24 12:00 FiO2 Intake & Output 08/30/24 08/31/24 08/31/24 18:59 06:59 18:59 Intake Total 120 415 Output Total 410 1200 716 Balance -290 -1200 -301 Weight 103.419 kg 107.5 kg Intake: Oral 120 415 Output: Chest Tube Drainage 110 66 Thora-Vent Left Upper 110 66 Anterior Chest Urine 300 1200 650 Other: Voiding Method Urinal Urinal Urinal # Voids 1 1 - Labs CBC & Chem 7: 08/31/24 07:57 08/31/24 07:57 Labs: Abnormal Lab Results - Last 24 Hours (Table) 08/30/24 08/30/24 08/31/24 Range/Units 17:02 20:21 06:58 RBC (4.40-5.60) 10*6/uL Hgb (13.0-17.0) g/dL Hct (39.6-50.0) % MCHC (32.0-37.0) g/dL Immature Gran # (0.00-0.04) 10*3/uL Chloride (98-107) mmol/L Carbon Dioxide (22-30) mmol/L BUN (9-20) mg/dL Creatinine (0.66-1.25) mg/dL Glucose (74-99) mg/dL POC Glucose (mg/dL) 372 H 397 H 266 H (70-110) mg/dL 08/31/24 08/31/24 08/31/24 Range/Units 07:57 07:57 11:45 RBC 3.47 L (4.40-5.60) 10*6/uL Hgb 10.3 L (13.0-17.0) g/dL Hct 32.4 L (39.6-50.0) % MCHC 31.8 L (32.0-37.0) g/dL Immature Gran # 0.05 H (0.00-0.04) 10*3/uL Chloride 109 H (98-107) mmol/L Carbon Dioxide 21 L (22-30) mmol/L BUN 39 H (9-20) mg/dL Creatinine 1.48 H (0.66-1.25) mg/dL Glucose 311 H (74-99) mg/dL POC Glucose (mg/dL) 296 H (70-110) mg/dL
[2024-08-31 16:42] LABS: Glucose,Whole Blood 421 mg/dL (70-110)
--- NOTE | 2024-08-31 19:06 | P.PN ---
Subjective Progress Note Date: 08/31/24 Patient presented to emergency department late last night after falling off a l adder 3 days ago. Reportedly, was cutting branches from a tree and fell approximately 10 feet. Landed on his left side. Denies head trauma. On arrival also complaining of some shortness of breath. Tachycardic. Chest x-ray showing a large left-sided pneumothorax. lateral left 6th and 7th rib fractures. ER physician placed a left-sided ThoraVent. Did have a follow-up CT of chest, abdomen, pelvis showing trace left-sided pneumothorax with the ThoraVent catheter in place. Small hemothorax with associated pulmonary contusion or atelectasis. Redemonstration of left lateral 6th and 7th rib fractures with 9 mm displacement. Also, patient was noted to be to be in atrial fibrillation with RVR, and was bolused with 20 mg of IV Cardizem. Patient being seen in the emergency department. On 3 L/min nasal cannula. SpO2 reading 99%. Not in any respiratory distress. Blood pressure is normotensive. Nontachycardic. Normal saline infusing at 75 mg/h. As needed Dilaudid was ordered for pain . Pain described as sharp and rated 10 out of 10 with coughing or deep breathing or any movements. ThoraVent to suction and atrium at-20 cm H2O. Does have minimal intermittent air leaking. 70 cc of sanguinous output in collection chamber. CBC: WBC count 15.3 hemoglobin 13.1 g/dL, platelets 272. CMP: Sodium 139, potassium 5.3, chloride 109, serum bicarb 15, BUN 33, creatinine 1.88, glucose 249. Troponin less than 0.012. LFTs not elevated. Urinalysis unremarkable. Serum alcohol level less than 10. Current vital signs: Temperature 98.9, heart rate 94 bpm, blood pressure 145/91 mmHg, SpO2 reading 98% on 3 L/min nasal cannula. On 08/30/2024, the patient is being seen for a follow-up. Still complaining of pain across the left chest which is atraumatic. As the patient also sustained a pneumothorax and rib fractures. Left-sided chest tube is in place. The patient has a Thora vent in place. There is a very tiny left apical pneumothorax. Nevertheless, the patient is not having any air leak in the Thora vent and output from the tube is minimal and stable over the past 24 hours. Hemoglobin remained stable at 10.7. The white cell count is 13.6. Platelet count is at 228. Oxygenation remained stable and the patient is currently on 2 L of oxygen by nasal cannula with a pulse ox of 99%. The patient remains on aspirin and Plavix. The patient remains on amiodarone 200 mg p.o. twice a day. Patient is also on Toprol 25 mg p.o. daily. The patient is on normal saline rate of 75 cc an hour. The patient receiving Dilaudid for pain control 0.5 to 1 mg every 3-6 hours. Rosamond 5 was added also to the regimen and the patient was given lidocaine patch. No altered mentation for now. No other specific complaints. As mentioned, the patient has a displaced lateral left 6th and 7th fracture and a pneumothorax that has recovered. He remains atrial fibrillation, rate is under better control. He also has pain in the left upper extremity and shoulder without any evidence of fractures. On 08/31/2024, the patient is being seen for a follow-up. Chest wall pain is under better control and the patient is receiving Dilaudid on a as needed basis and the patient is also on Rosamond. Meanwhile, the patient continues to have a left chest Thora vent. I put the patient's Thora vent to waterseal yesterday. Repeat chest x-ray was done today and the patient has a small to moderate-sized left-sided pneumothorax similar probably minimally larger. At the same time, the patient has a small left-sided pleural effusion and mild pulm vascular congestion. He clinically stable. Hemodynamic stable. Oxygenation stable and the patient is currently on room air oxygen with a pulse ox of 95%. The white cell count is 8.4 with a hemoglobin 10.3 and platelet count of 214. BUN is 49 and the creatinine is 1.48, improved compared to yesterday sodium levels at 138 and a potassium level is at 4.8. The patient had disorder event attached to wall suction for the next 24 hours. The patient's current cardiac rhythm is sinus. He is known to have coronary disease with previous PCI. The patient has chronic stage III kidney disease along with hypertension hyperlipidemia diabetes mellitus and history of smoking. Objective - Vital Signs Vital signs: Vital Signs Temp 98.5 F 08/31/24 15:55 Pulse 86 08/31/24 15:55 Resp 18 08/31/24 15:55 BP 136/68 08/31/24 15:55 Pulse Ox 95 08/31/24 15:55 FiO2 Intake & Output 08/31/24 08/31/24 09/01/24 06:59 18:59 06:59 Intake Total 415 Output Total 1200 840 Balance -1200 -425 Weight 107.5 kg Intake: Oral 415 Output: Chest Tube Drainage 190 Thora-Vent Left Upper 190 Anterior Chest Urine 1200 650 Other: Voiding Method Urinal Urinal # Voids 1 - Exam GENERAL EXAM: Alert, 73-year-old male, resting comfortably on room air oxygen. No significant respiratory distress HEAD: Normocephalic and atraumatic EYES: Normal reaction of pupils, equal size. NOSE: Clear with pink turbinates. THROAT: No erythema or exudates. NECK: No masses, no JVD. Trachea is midline. CHEST: ThoraVent left chest wall hooked to atrium with suction -20 cm H2O. no evidence of any air leak.. No subcutaneous emphysema or crepitus palpated on chest wall. LUNGS: Equal air entry with no crackles, wheeze, rhonchi or dullness. No conversational dyspnea or accessory muscle use.. CVS: S1 and S2 normal with no audible murmur, regular rhythm. No extra heart sounds ABDOMEN: No hepatosplenomegaly, active bowel sounds, no guarding or rigidity. SPINE: No scoliosis or deformity SKIN: No rashes CENTRAL NERVOUS SYSTEM: No focal deficits, tone is normal in all 4 extremities. EXTREMITIES: There is no peripheral edema, clubbing, or cyanosis. Peripheral pulses are intact. - Labs CBC & Chem 7: 08/31/24 07:57 08/31/24 07:57 Labs: Abnormal Lab Results - Last 24 Hours (Table) 08/30/24 08/31/24 08/31/24 Range/Units 20:21 06:58 07:57 RBC 3.47 L (4.40-5.60) 10*6/uL Hgb 10.3 L (13.0-17.0) g/dL Hct 32.4 L (39.6-50.0) % MCHC 31.8 L (32.0-37.0) g/dL Immature Gran # 0.05 H (0.00-0.04) 10*3/uL Chloride (98-107) mmol/L Carbon Dioxide (22-30) mmol/L BUN (9-20) mg/dL Creatinine (0.66-1.25) mg/dL Glucose (74-99) mg/dL POC Glucose (mg/dL) 397 H 266 H (70-110) mg/dL 08/31/24 08/31/24 08/31/24 Range/Units 07:57 11:45 16:40 RBC (4.40-5.60) 10*6/uL Hgb (13.0-17.0) g/dL Hct (39.6-50.0) % MCHC (32.0-37.0) g/dL Immature Gran # (0.00-0.04) 10*3/uL Chloride 109 H (98-107) mmol/L Carbon Dioxide 21 L (22-30) mmol/L BUN 39 H (9-20) mg/dL Creatinine 1.48 H (0.66-1.25) mg/dL Glucose 311 H (74-99) mg/dL POC Glucose (mg/dL) 296 H 421 H (70-110) mg/dL Assessment and Plan Assessment: Fall from ladder, approximately 10 feet resulting in left lateral displaced rib fractures 6 and 7, traumatic left-sided pneumothorax, hemothorax, with associated atelectasis or more likely pulmonary contusion. Status post Thora vent insertion, follow-up CT of chest, abdomen, pelvis showing trace left-sided pneumothorax with the ThoraVent catheter in place. The patient has left lateral 6th and 7th rib fractures with 9 mm displacement. No evidence of any air leak through the Thora vent and the chest x-ray shows possibly some enlargement of left-sided pneumothorax and the patient's Thora vent was attached to wall suction, -20 cm of water. Chest wall pain secondary to above, currently on lidocaine patch, Rosamond and Dilaudid for pain control Acute hypoxemic respiratory failure, improved and the patient is currently on room air oxygen New onset atrial fibrillation with RVR, likely secondary to above, currently normal sinus Chronic kidney disease stage III Hypertension History of hyperlipidemia History of coronary artery disease with previous PCI/stents Diabetes mellitus type 2 Obesity, BMI 31.8 kg/m Plan: Keep the Thora vent in place with wall suction -20 cm of water Daily chest x-rays Dilaudid for pain control Lidocaine patch Rosamond Oxygenation remained stable and the patient is currently on 2 L of oxygen by nasal cannula Hemoglobin is stable proBNP is not elevated Resume home medication including amiodarone 200 mg p.o. twice a day, metoprolol 25 mg XL 1 tablet a day Hemodynamically stable. Will continue to follow.
[2024-08-31 20:05] LABS: Glucose,Whole Blood 334 mg/dL (70-110)
[2024-09-01 06:08] LABS: Glucose,Whole Blood 285 mg/dL (70-110)
--- NOTE | 2024-09-01 07:24 | P.PN ---
Subjective Progress Note Date: 09/01/24 Principal diagnosis: Left-sided rib fracture with pneumothorax after fall off ladder, small hemothorax, pulmonary contusion, status post Thora-vent placement by the emergency room physicians, new onset A-fib with RVR on admit. History of coronary artery disease with previous PCI, hypertension, hyperlipidemia, chronic kidney disease stage III, diabetes mellitus, current tobacco dependence The patient was seen and examined this morning sitting up in bed on the cardiac stepdown unit in no acute distress. Remains in sinus rhythm, hemodynamically stable. Currently on room air with oxygen saturation in the mid 90s, able to achieve 1500 mL on incentive spirometry. Left sided Thora-vent remains to continuous wall suction, no airleak present this morning. Chest x-ray reviewed. Objective - Vital Signs Vital signs: Vital Signs Temp 98.3 F 09/01/24 04:00 Pulse 87 09/01/24 04:00 Resp 17 09/01/24 04:00 BP 162/90 09/01/24 04:00 Pulse Ox 95 09/01/24 04:00 FiO2 Intake & Output 08/31/24 09/01/24 09/01/24 18:59 06:59 18:59 Intake Total 415 Output Total 840 1480 Balance -425 -1480 Weight 103 kg Intake: Oral 415 Output: Chest Tube Drainage 190 0 Thora-Vent Left Upper 190 0 Anterior Chest Urine 650 1480 Other: Voiding Method Urinal Urinal # Voids 1 - Exam CONSTITUTIONAL: Appears comfortable, cooperative, no acute distress RESPIRATORY: Lungs sounds diminished bilaterally. Respirations even, nonlabored. Currently on room air with oxygen saturation 950%. Able to achieve 1500 mL on incentive spirometry. Strong cough. CARDIOVASCULAR: S1, S2 present. Regular rate and rhythm, sinus rhythm on telemetry. Palpable peripheral pulses bilaterally. No edema present. No calf pain or tenderness noted. SCDs present. GASTROINTESTINAL: Abdomen soft, nontender, nondistended. Active bowel sounds present 4 quadrants. Tolerating diet GENITOURINARY: Continues to void clear, yellow urine INTEGUMENTARY: Skin is warm and dry NEUROLOGIC: Cranial nerves II through XII intact MUSKULOSKELETAL: Able to move all extremities, strength equal bilaterally PSYCHIATRIC: Alert and oriented to person place and time, appropriate affect, intact judgment and insight INVASIVE LINES AND TUBES: Left sided Thora-vent present to continuous wall suction, no airleak present, no output overnight, 170 mL output in the last 24 hours - Allied health notes Allied health notes reviewed: nursing - Labs CBC & Chem 7: 08/31/24 07:57 08/31/24 07:57 Labs: Abnormal Lab Results - Last 24 Hours (Table) 08/31/24 08/31/24 08/31/24 Range/Units 07:57 07:57 11:45 RBC 3.47 L (4.40-5.60) 10*6/uL Hgb 10.3 L (13.0-17.0) g/dL Hct 32.4 L (39.6-50.0) % MCHC 31.8 L (32.0-37.0) g/dL Immature Gran # 0.05 H (0.00-0.04) 10*3/uL Chloride 109 H (98-107) mmol/L Carbon Dioxide 21 L (22-30) mmol/L BUN 39 H (9-20) mg/dL Creatinine 1.48 H (0.66-1.25) mg/dL Glucose 311 H (74-99) mg/dL POC Glucose (mg/dL) 296 H (70-110) mg/dL 08/31/24 08/31/24 09/01/24 Range/Units 16:40 20:04 06:06 RBC (4.40-5.60) 10*6/uL Hgb (13.0-17.0) g/dL Hct (39.6-50.0) % MCHC (32.0-37.0) g/dL Immature Gran # (0.00-0.04) 10*3/uL Chloride (98-107) mmol/L Carbon Dioxide (22-30) mmol/L BUN (9-20) mg/dL Creatinine (0.66-1.25) mg/dL Glucose (74-99) mg/dL POC Glucose (mg/dL) 421 H 334 H 285 H (70-110) mg/dL - Imaging and Cardiology Chest x-ray: image reviewed Assessment and Plan Assessment: Left-sided rib fracture with pneumothorax after fall off ladder, small hemothorax, pulmonary contusion, status post Thora-vent placement by the emergency room physicians Chest pain, shortness of breath secondary to above New onset A-fib with RVR, currently sinus History of coronary artery disease with previous PCI Hypertension Hyperlipidemia Chronic kidney disease stage III Diabetes mellitus, insulin-dependent, currently uncontrolled with A1c 7.4%, blood sugars over 200s this admission Current tobacco dependence Plan: Thora-vent placed to waterseal Repeat chest x-ray in the morning. If lung remains expanded and no airleak present likely will remove Thora-vent tomorrow Encourage incentive spirometry use Increase activity, ambulate as tolerated. Patient should be out of bed the majority of the day Pain control per current medication regimen, pain services A-fib management per internal medicine/trauma services Patient needs better control of his blood sugars in order to promote healing, blood sugars continue to remain 3-400 range Medical management of other comorbidities per internal medicine, trauma, pulmonology.
--- NOTE | 2024-09-01 07:44 | XR ---
EXAMINATION TYPE: XR chest 1V portable DATE OF EXAM: 09/01/2024 6:57 AM COMPARISON: Chest radiograph from one day prior. CLINICAL INDICATION: Male, 73 years old with history of pneumothorax; [facility] TECHNIQUE: XR chest 1V portable Frontal view of the chest. FINDINGS: Lungs/Pleura: Blunting of the left costophrenic angle. There is no evidence of right pleural effusio n, focal consolidation, or pneumothorax Pulmonary vascularity: Unremarkable. Heart/mediastinum: Cardiomediastinal silhouette is unremarkable. Musculoskeletal: No acute osseous pathology. Other findings: Subcutaneous emphysema scattered throughout the visualized left axilla. Lines/Tubes: Left thoracotomy tube is present without evidence of pneumothorax. IMPRESSION: Left thoracotomy tube without evidence of pneumothorax. Small left pleural effusion. Scattered subcut aneous emphysema. [facility], , 09/01/2024 7:42 AM
[2024-09-01 11:35] LABS: Glucose,Whole Blood 250 mg/dL (70-110)
--- NOTE | 2024-09-01 13:58 | P.PN ---
Subjective Progress Note Date: 09/01/24 Subjective: Patient seen and examined at bedside. CXR today reviewed, appears resolved, chest tube placed to water seal. Pertinent positives and negatives as discussed above, a complete review of syste ms was performed and all other systems are negative. Gen: In NAD, non-toxic HEENT: normocephalic, atraumatic, hearing acuity is intant, mucous membranes moist CVS: perfusing all extremities well, no pitting edema, Respiratory: symmetric chest expansion, no accessory muscle use, GI: soft, NTTP, ND, : no suprapubic tenderness, no CVA tenderness MSK/Derm: no rashes, cyanosis Neuro: CN II-XII intact, no motor weakness, Psych: cooperative, euthymic mood, judgment and insight is intact Assessment and Plan: Mechanical fall Traumatic large left pneumothorax Left lateral 6th and 7th rib fracture Suspected pulmonary contusion Small left hemothorax New onset A-fib with RVR Leukocytosis, reactive secondary to above - Toradol went into place - Surgery and pulmonology following - Pain control with oral Tylenol as needed, oral [place] as needed, IV Dilaudid as needed, lidocaine patch daily - Cardiology note reviewed, patient to be continued on aspirin, Plavix, also started on amiodarone 200 twice daily, no anticoagulation at the moment History of CKD stage III - Creatinine at baseline - Continue to monitor Mild anion gap and non-anion gap metabolic acidosis, resolving Mild hyperkalemia, resolved - On sodium bicarb 650 mg 3 times daily - Continue to monitor Type 2 diabetes Hyperglycemia - Sliding scale insulin, monitor for hypoglycemia Chronic: CAD status post stent Dyslipidemia Hypertension DVT ppx: Subcu heparin Code status: Full code Anticipated discharge place: Pending clinical course Anticipated discharge time: Pending clinical course Objective - Vital Signs Vital signs: Vital Signs Temp 99.1 F 09/01/24 08:00 Pulse 79 09/01/24 12:00 Resp 16 09/01/24 12:00 BP 116/67 09/01/24 12:00 Pulse Ox 97 09/01/24 12:00 FiO2 Intake & Output 08/31/24 09/01/24 09/01/24 18:59 06:59 18:59 Intake Total 415 422 Output Total 840 1480 400 Balance -425 -1480 22 Weight 103 kg Intake: Oral 415 422 Output: Chest Tube Drainage 190 0 0 Thora-Vent Left Upper 190 0 0 Anterior Chest Urine 650 1480 400 Other: Voiding Method Urinal Urinal Urinal # Voids 1 - Labs CBC & Chem 7: 08/31/24 07:57 08/31/24 07:57 Labs: Abnormal Lab Results - Last 24 Hours (Table) 08/31/24 08/31/24 09/01/24 Range/Units 16:40 20:04 06:06 POC Glucose (mg/dL) 421 H 334 H 285 H (70-110) mg/dL 09/01/24 Range/Units 11:33 POC Glucose (mg/dL) 250 H (70-110) mg/dL
[2024-09-01] MEDS: INSULIN GLARGINE (LANTUS) 100 UNIT/ML SYR SQ ONE (14:00)
[2024-09-01 14:09] LABS: Glucose,Whole Blood 397 mg/dL (70-110)
--- NOTE | 2024-09-01 15:44 | XR ---
EXAMINATION TYPE: XR chest 2V DATE OF EXAM: 09/01/2024 3:25 PM COMPARISON: Chest radiograph from same day. CLINICAL INDICATION: Male, 73 years old with history of fell, not sure if tube is still in correctly; [facility] TECHNIQUE: XR chest 2V Frontal and lateral views of the chest. FINDINGS: Lungs/Pleura: left thoracotomy tube with possible trace pneumothorax or subcutaneous emphysema on lat eral view. There is no evidence of pleural effusion, focal consolidation, or pneumothorax. Pulmonary vascularity: Unremarkable. Heart/mediastinum: Cardiomediastinal silhouette is unremarkable. Musculoskeletal: No acute osseous pathology. Scattered subcutaneous emphysema in the left thorax. IMPRESSION: Left thoracotomy tube appears to project over the chest on 2 views. There may be trace pneumothorax s een on lateral view versus subcutaneous emphysema. [facility], , 09/01/2024 3:42 PM
--- NOTE | 2024-09-01 15:52 | CT ---
EXAMINATION TYPE: CT brain wo con DATE OF EXAM: 09/01/2024 3:24 PM COMPARISON: 08/29/2024. CLINICAL INDICATION: Male, 73 years old with history of hit head in bathroom, HIT HEAD IN BATHROOM TECHNIQUE: Brain: Axial CT images of the brain were obtained with coronal and sagittal reformats created and rev iewed. Contrast used: None. Oral contrast used: None. CT DLP: 1156.4 mGycm, Automated exposure control for dose reduction was used. FINDINGS: Brain: Extra-axial spaces: No abnormal extra-axial fluid collections. Ventricular system: Dilatation in proportion to cerebral atrophy. Cerebral parenchyma: Cerebral atrophy. No acute intraparenchymal hemorrhage or mass effect. The virgen -white junction is well differentiated. Scattered hypoattenuating areas are seen within the white mat ter. Cerebellum: Unremarkable. Mass effect: No evidence of midline shift. Intracranial vasculature: Atherosclerotic calcifications of the intracranial vessels. Soft tissues: Left scalp skin jordi. Calvarium/osseous structures: No depressed skull fracture. Paranasal sinuses and mastoid air cells: Mild scattered paranasal sinus disease. Visualized orbits: Orbital contents are intact. IMPRESSION: 1. No acute intracranial process. 2. Nonspecific white matter changes, likely secondary to chronic small vessel ischemic disease. 3. Left frontal scalp jordi. No evidence of fracture or intracranial hemorrhage. [facility], , 09/01/2024 3:50 PM
--- NOTE | 2024-09-01 16:23 | P.PN ---
Subjective Progress Note Date: 09/01/24 Patient presented to emergency department late last night after falling off a l adder 3 days ago. Reportedly, was cutting branches from a tree and fell approximately 10 feet. Landed on his left side. Denies head trauma. On arrival also complaining of some shortness of breath. Tachycardic. Chest x-ray showing a large left-sided pneumothorax. lateral left 6th and 7th rib fractures. ER physician placed a left-sided ThoraVent. Did have a follow-up CT of chest, abdomen, pelvis showing trace left-sided pneumothorax with the ThoraVent catheter in place. Small hemothorax with associated pulmonary contusion or atelectasis. Redemonstration of left lateral 6th and 7th rib fractures with 9 mm displacement. Also, patient was noted to be to be in atrial fibrillation with RVR, and was bolused with 20 mg of IV Cardizem. Patient being seen in the emergency department. On 3 L/min nasal cannula. SpO2 reading 99%. Not in any respiratory distress. Blood pressure is normotensive. Nontachycardic. Normal saline infusing at 75 mg/h. As needed Dilaudid was ordered for pain . Pain described as sharp and rated 10 out of 10 with coughing or deep breathing or any movements. ThoraVent to suction and atrium at-20 cm H2O. Does have minimal intermittent air leaking. 70 cc of sanguinous output in collection chamber. CBC: WBC count 15.3 hemoglobin 13.1 g/dL, platelets 272. CMP: Sodium 139, potassium 5.3, chloride 109, serum bicarb 15, BUN 33, creatinine 1.88, glucose 249. Troponin less than 0.012. LFTs not elevated. Urinalysis unremarkable. Serum alcohol level less than 10. Current vital signs: Temperature 98.9, heart rate 94 bpm, blood pressure 145/91 mmHg, SpO2 reading 98% on 3 L/min nasal cannula. On 08/30/2024, the patient is being seen for a follow-up. Still complaining of pain across the left chest which is atraumatic. As the patient also sustained a pneumothorax and rib fractures. Left-sided chest tube is in place. The patient has a Thora vent in place. There is a very tiny left apical pneumothorax. Nevertheless, the patient is not having any air leak in the Thora vent and output from the tube is minimal and stable over the past 24 hours. Hemoglobin remained stable at 10.7. The white cell count is 13.6. Platelet count is at 228. Oxygenation remained stable and the patient is currently on 2 L of oxygen by nasal cannula with a pulse ox of 99%. The patient remains on aspirin and Plavix. The patient remains on amiodarone 200 mg p.o. twice a day. Patient is also on Toprol 25 mg p.o. daily. The patient is on normal saline rate of 75 cc an hour. The patient receiving Dilaudid for pain control 0.5 to 1 mg every 3-6 hours. Captiva 5 was added also to the regimen and the patient was given lidocaine patch. No altered mentation for now. No other specific complaints. As mentioned, the patient has a displaced lateral left 6th and 7th fracture and a pneumothorax that has recovered. He remains atrial fibrillation, rate is under better control. He also has pain in the left upper extremity and shoulder without any evidence of fractures. On 08/31/2024, the patient is being seen for a follow-up. Chest wall pain is under better control and the patient is receiving Dilaudid on a as needed basis and the patient is also on Captiva. Meanwhile, the patient continues to have a left chest Thora vent. I put the patient's Thora vent to waterseal yesterday. Repeat chest x-ray was done today and the patient has a small to moderate-sized left-sided pneumothorax similar probably minimally larger. At the same time, the patient has a small left-sided pleural effusion and mild pulm vascular congestion. He clinically stable. Hemodynamic stable. Oxygenation stable and the patient is currently on room air oxygen with a pulse ox of 95%. The white cell count is 8.4 with a hemoglobin 10.3 and platelet count of 214. BUN is 49 and the creatinine is 1.48, improved compared to yesterday sodium levels at 138 and a potassium level is at 4.8. The patient had disorder event attached to wall suction for the next 24 hours. The patient's current cardiac rhythm is sinus. He is known to have coronary disease with previous PCI. The patient has chronic stage III kidney disease along with hypertension hyperlipidemia diabetes mellitus and history of smoking. 09/01/2024, the patient's pleural vent was again attached to waterseal. The chest x-ray from today shows no evidence of any pneumothorax. Pain is under better control. No active drainage to the Thora vent. No bleeding. Chest wall pain is subsided. The patient has no specific complaints otherwise. Using the incentive spirometer. Currently on room air oxygen. Blood sugar is to be managed by the medical team. No other new labs are available from today. Cardiothoracic surgery is also on the case. Repeat chest x-ray from today was noted. No significant abnormalities. Objective - Vital Signs Vital signs: Vital Signs Temp 99.1 F 09/01/24 08:00 Pulse 84 09/01/24 08:00 Resp 16 09/01/24 08:00 BP 159/84 09/01/24 08:00 Pulse Ox 97 09/01/24 08:00 FiO2 Intake & Output 08/31/24 09/01/24 09/01/24 18:59 06:59 18:59 Intake Total 415 200 Output Total 840 1480 400 Balance -425 -1480 -200 Weight 103 kg Intake: Oral 415 200 Output: Chest Tube Drainage 190 0 0 Thora-Vent Left Upper 190 0 0 Anterior Chest Urine 650 1480 400 Other: Voiding Method Urinal Urinal Urinal # Voids 1 - Exam GENERAL EXAM: Alert, 73-year-old male, resting comfortably on room air oxygen. No significant respiratory distress HEAD: Normocephalic and atraumatic EYES: Normal reaction of pupils, equal size. NOSE: Clear with pink turbinates. THROAT: No erythema or exudates. NECK: No masses, no JVD. Trachea is midline. CHEST: ThoraVent left chest to waterseal, no evidence of any air leak.. No subcutaneous emphysema or crepitus palpated on chest wall. LUNGS: Equal air entry with no crackles, wheeze, rhonchi or dullness. No conversational dyspnea or accessory muscle use.. CVS: S1 and S2 normal with no audible murmur, regular rhythm. No extra heart sounds ABDOMEN: No hepatosplenomegaly, active bowel sounds, no guarding or rigidity. SPINE: No scoliosis or deformity SKIN: No rashes CENTRAL NERVOUS SYSTEM: No focal deficits, tone is normal in all 4 extremities. EXTREMITIES: There is no peripheral edema, clubbing, or cyanosis. Peripheral pulses are intact. - Labs CBC & Chem 7: 08/31/24 07:57 08/31/24 07:57 Labs: Abnormal Lab Results - Last 24 Hours (Table) 08/31/24 08/31/24 08/31/24 Range/Units 11:45 16:40 20:04 POC Glucose (mg/dL) 296 H 421 H 334 H (70-110) mg/dL 09/01/24 Range/Units 06:06 POC Glucose (mg/dL) 285 H (70-110) mg/dL Assessment and Plan Assessment: Fall from ladder, approximately 10 feet resulting in left lateral displaced rib fractures 6 and 7, traumatic left-sided pneumothorax, hemothorax, with associated atelectasis or more likely pulmonary contusion. Status post Thora vent insertion, follow-up CT of chest, abdomen, pelvis showing trace left-sided pneumothorax with the ThoraVent catheter in place. The patient has left lateral 6th and 7th rib fractures with 9 mm displacement. No evidence of any air leak through the Thora vent and the chest x-ray shows no evidence of pneumothorax on 08/24/2024 and the tolerance was attached to waterseal Chest wall pain secondary to above, currently on lidocaine patch, Captiva and Dilaudid for pain control Acute hypoxemic respiratory failure, improved and the patient is currently on room air oxygen New onset atrial fibrillation with RVR, likely secondary to above, currently normal sinus Chronic kidney disease stage III Hypertension History of hyperlipidemia History of coronary artery disease with previous PCI/stents Diabetes mellitus type 2 Obesity, BMI 31.8 kg/m Plan: Keep the Thora vent to waterseal Daily chest x-rays Dilaudid for pain control Lidocaine patch Captiva Oxygenation remained stable and the patient is currently on 2 L of oxygen by nasal cannula Hemoglobin is stable proBNP is not elevated Resume home medication including amiodarone 200 mg p.o. twice a day, metoprolol 25 mg XL 1 tablet a day Hemodynamically stable. Will continue to follow.
[2024-09-01 16:29] LABS: Glucose,Whole Blood 320 mg/dL (70-110)
[2024-09-01 19:58] LABS: Glucose,Whole Blood 307 mg/dL (70-110)
[2024-09-02 06:01] LABS: Glucose,Whole Blood 232 mg/dL (70-110)
[2024-09-02] MEDS: INSULIN GLARGINE (LANTUS) 100 UNIT/ML SYR SQ SCH (06:28)
[2024-09-02 06:32] VITALS: RESP 18
--- NOTE | 2024-09-02 08:49 | XR ---
EXAMINATION TYPE: XR chest 2V DATE OF EXAM: 09/02/2024 8:18 AM COMPARISON: Chest radiograph from same day. CLINICAL INDICATION: Male, 73 years old with history of Pneumothorax; [facility] TECHNIQUE: XR chest 2V Frontal and lateral views of the chest. FINDINGS: Lungs/Pleura: left thoracotomy tube with possible trace pneumothorax or subcutaneous emphysema on lat eral view. There is no evidence of right pleural effusion, focal consolidation, or pneumothorax. Tra ce left pleural effusion. Pulmonary vascularity: Unremarkable. Heart/mediastinum: Cardiomediastinal silhouette is unremarkable. Musculoskeletal: No acute osseous pathology. Scattered subcutaneous emphysema in the left thorax. IMPRESSION: Left thoracotomy tube appears to project over the chest on 2 views. Trace left pleural effusion. [facility], , 09/02/2024 8:46 AM
--- NOTE | 2024-09-02 09:33 | P.PN ---
Subjective Progress Note Date: 09/02/24 This is Gilberto Son NP, I'm dictating on behalf of Dr. Gramajo's H&P and A&P. Patient was interviewed and examined. Patient is a pleasant 73-year-old male who presented to the hospital after a fall from a ladder. Patient initially went into A-fib RVR. He was started on oral amiodarone, and maintained normal sinus rhythm. Nursing reports that last night the patient went back into A-fib with RVR, with a rate of 120s. This was self-limited and corrected itself without any intervention. We have been reconsulted secondary to the episode of A-fib with RVR. This morning patient reports that his chest pain is much better. He continues to demonstrate normal sinus rhythm on telemetry. No palpitations noted today. GENERAL: Well-appearing, well-nourished and in no acute distress. NECK: Supple without JVD or thyromegaly. LUNGS: Breath sounds clear to auscultation bilaterally. Respiration equal and unlabored. No wheezes, rales or rhonchi. HEART: Regular rate and rhythm without murmurs, rubs or gallops. S1 and S2 heard. EXTREMITIES: Normal range of motion, no edema. No clubbing or cyanosis. Peripheral pulses intact and strong. VITALS: Temp 98.2, pulse 69, respirations 18, blood pressure 179/76, O2 saturation 98% on room air TELEMETRY: Sinus mechanism LABS: No new labs since 08/31/2024 IMPRESSION: 1. Status post mechanical fall 2. Left pneumothorax, secondary to traumatic fall, status post Thora vent 3. Left-sided rib fractures 4. New onset A-fib with RVR, with limited breakthrough A-fib with RVR last night 5. Coronary artery disease with previous PCI performed at [facility] 6. Hypertension 7. Hyperlipidemia 8. Diabetes 9. Nicotine dependence 10. Alcohol use PLAN: Continue amiodarone. At discharge send patient on amiodarone 200 mg daily for 2 weeks instead of 1 week. No refills. Amiodarone treatment is working, as patient had a self-limited episode of A-fib. The atrial fibrillation is secondary to his chest trauma. Once this heals the patient should no longer experience atrial fibrillation. No further recommendations from a cardiology standpoint. Objective - Vital Signs Vital signs: Vital Signs Temp 98.3 F 09/02/24 09:29 Pulse 76 09/02/24 09:29 Resp 18 09/02/24 09:29 BP 148/81 09/02/24 09:29 Pulse Ox 96 09/02/24 09:29 FiO2 Intake & Output 09/01/24 09/02/24 09/02/24 18:59 06:59 18:59 Intake Total 962 540 240 Output Total 500 1875 Balance 462 -1335 240 Weight 102.6 kg Intake: Oral 962 540 240 Output: Chest Tube Drainage 100 0 Thora-Vent Left Upper 100 0 Anterior Chest Urine 400 1875 Other: Voiding Method Urinal Urinal # Voids 1 - Labs CBC & Chem 7: 08/31/24 07:57 08/31/24 07:57 Labs: Abnormal Lab Results - Last 24 Hours (Table) 09/01/24 09/01/24 09/01/24 Range/Units 11:33 14:07 16:27 POC Glucose (mg/dL) 250 H 397 H 320 H (70-110) mg/dL 09/01/24 09/02/24 Range/Units 19:56 05:59 POC Glucose (mg/dL) 307 H 232 H (70-110) mg/dL
--- NOTE | 2024-09-02 09:37 | P.PN ---
Subjective Progress Note Date: 09/02/24 Principal diagnosis: Left-sided rib fracture with pneumothorax after fall off ladder, small hemothorax, pulmonary contusion, status post Thora-vent placement by the emergency room physicians, new onset A-fib with RVR on admit. History of coronary artery disease with previous PCI, hypertension, hyperlipidemia, chronic kidney disease stage III, diabetes mellitus, current tobacco dependence The patient was seen and examined this morning sitting up in bed on the cardiac stepdown unit in no acute distress. Remains in sinus rhythm, hemodynamically stable. Currently on room air with oxygen saturation in the high 90s, able to achieve 1500 mL on incentive spirometry. Left sided Thora-vent remains to water seal, no airleak present this morning. Apparently the patient did have an episode of rapid atrial fibrillation last night, was given his oral amiodarone early with conversion to sinus rhythm. In addition he apparently fell yesterday and hit his head, did receive jordi, underwent brain CT without any acute findings. He also had a chest x-ray at that time, stable. Thora-vent tubing clamped this morning, repeat chest x-ray reviewed. Objective - Vital Signs Vital signs: Vital Signs Temp 98.2 F 09/02/24 04:00 Pulse 69 09/02/24 04:00 Resp 18 09/02/24 04:00 BP 179/76 09/02/24 04:00 Pulse Ox 98 09/02/24 04:00 FiO2 Intake & Output 09/01/24 09/02/24 09/02/24 18:59 06:59 18:59 Intake Total 962 540 Output Total 500 1875 Balance 462 -1335 Weight 102.6 kg Intake: Oral 962 540 Output: Chest Tube Drainage 100 0 Thora-Vent Left Upper 100 0 Anterior Chest Urine 400 1875 Other: Voiding Method Urinal Urinal # Voids 1 - Exam CONSTITUTIONAL: Appears comfortable, cooperative, no acute distress RESPIRATORY: Lungs sounds diminished bilaterally. Respirations even, nonlabored. Currently on room air with oxygen saturation 98%. Able to achieve 1500 mL on incentive spirometry. Strong cough. CARDIOVASCULAR: S1, S2 present. Regular rate and rhythm, sinus rhythm on telemetry. Palpable peripheral pulses bilaterally. No edema present. No calf pain or tenderness noted. SCDs present. GASTROINTESTINAL: Abdomen soft, nontender, nondistended. Active bowel sounds present 4 quadrants. Tolerating diet GENITOURINARY: Continues to void clear, yellow urine INTEGUMENTARY: Skin is warm and dry NEUROLOGIC: Cranial nerves II through XII intact MUSKULOSKELETAL: Able to move all extremities, strength equal bilaterally PSYCHIATRIC: Alert and oriented to person place and time, appropriate affect, intact judgment and insight INVASIVE LINES AND TUBES: Left sided Thora-vent present to waterseal, no airleak present, no output overnight, 100 mL output in the last 24 hours, clamped this morning - Allied health notes Allied health notes reviewed: nursing - Labs CBC & Chem 7: 08/31/24 07:57 08/31/24 07:57 Labs: Abnormal Lab Results - Last 24 Hours (Table) 09/01/24 09/01/24 09/01/24 Range/Units 11:33 14:07 16:27 POC Glucose (mg/dL) 250 H 397 H 320 H (70-110) mg/dL 09/01/24 09/02/24 Range/Units 19:56 05:59 POC Glucose (mg/dL) 307 H 232 H (70-110) mg/dL - Imaging and Cardiology Chest x-ray: image reviewed Assessment and Plan Assessment: Left-sided rib fracture with pneumothorax after fall off ladder, small hemothorax, pulmonary contusion, status post Thora-vent placement by the emergency room physicians Chest pain, shortness of breath secondary to above New onset A-fib with RVR, currently sinus History of coronary artery disease with previous PCI Hypertension Hyperlipidemia Chronic kidney disease stage III Diabetes mellitus, insulin-dependent, currently uncontrolled with A1c 7.4%, blood sugars over 200s this admission Current tobacco dependence Plan: Thora-vent clamped, repeat chest x-ray reviewed Will remove Thora-vent Repeat chest x-ray in the morning, if stable patient may be discharged from cardiothoracic surgery standpoint when okay with other services Encourage incentive spirometry use Increase activity, ambulate as tolerated. Patient should be out of bed the majority of the day Pain control per current medication regimen, pain services A-fib management per internal medicine/trauma services Patient needs better control of his blood sugars in order to promote healing Medical management of other comorbidities per internal medicine, trauma, pulmonology.
[2024-09-02 11:28] LABS: Glucose,Whole Blood 254 mg/dL (70-110)
[2024-09-02] MEDS: HYDROcodone/APAP 10-325MG 1 EACH TAB PO PRN (12:15)
--- NOTE | 2024-09-02 13:26 | P.PN ---
Subjective Progress Note Date: 09/02/24 Subjective: Patient seen and examined at bedside. Pt had syncopal episode yesterday and hit his head. Required jordi. Today PTx is stable, CT has been removed. Ongoing rib pain. Gen: In NAD, non-toxic HEENT: normocephalic, atraumatic, hearing acuity is intant, mucous membranes moist CVS: perfusing all extremities well, no pitting edema, Respiratory: symmetric chest expansion, no accessory muscle use, GI: soft, NTTP, ND, : no suprapubic tenderness, no CVA tenderness MSK/Derm: no rashes, cyanosis Neuro: CN II-XII intact, no motor weakness, Psych: cooperative, euthymic mood, judgment and insight is intact Assessment and Plan: Mechanical fall Traumatic large left pneumothorax Left lateral 6th and 7th rib fracture Suspected pulmonary contusion Small left hemothorax New onset A-fib with RVR Leukocytosis, reactive secondary to above - Toradol went into place - Increased pts norco from 5 to 10 - Surgery and pulmonology following - Pain control with oral Tylenol as needed, oral [place] as needed, IV Dilaudid as needed, lidocaine patch daily - Cardiology note reviewed, patient to be continued on aspirin, Plavix, also started on amiodarone 200 twice daily, no anticoagulation at the moment History of CKD stage III - Creatinine at baseline - Continue to monitor Mild anion gap and non-anion gap metabolic acidosis, resolving Mild hyperkalemia, resolved - On sodium bicarb 650 mg 3 times daily - Continue to monitor Type 2 diabetes Hyperglycemia - Sliding scale insulin, monitor for hypoglycemia Chronic: CAD status post stent Dyslipidemia Hypertension DVT ppx: Subcu heparin Code status: Full code Anticipated discharge place: Pending clinical course Anticipated discharge time: Pending clinical course Objective - Vital Signs Vital signs: Vital Signs Temp 98.3 F 09/02/24 09:29 Pulse 70 09/02/24 12:00 Resp 18 09/02/24 12:00 BP 112/68 09/02/24 12:00 Pulse Ox 97 09/02/24 12:00 FiO2 Intake & Output 09/01/24 09/02/24 09/02/24 18:59 06:59 18:59 Intake Total 962 540 250 Output Total 500 1875 Balance 462 -1335 250 Weight 102.6 kg Intake: IV 10 Invasive Line 1 10 Oral 962 540 240 Output: Chest Tube Drainage 100 0 Thora-Vent Left Upper 100 0 Anterior Chest Urine 400 1875 Other: Voiding Method Urinal Urinal Urinal # Voids 1 - Labs CBC & Chem 7: 08/31/24 07:57 08/31/24 07:57 Labs: Abnormal Lab Results - Last 24 Hours (Table) 09/01/24 09/01/24 09/01/24 Range/Units 14:07 16:27 19:56 POC Glucose (mg/dL) 397 H 320 H 307 H (70-110) mg/dL 09/02/24 09/02/24 Range/Units 05:59 11:27 POC Glucose (mg/dL) 232 H 254 H (70-110) mg/dL
[2024-09-02 16:34] LABS: Glucose,Whole Blood 288 mg/dL (70-110)
--- NOTE | 2024-09-02 19:07 | P.PN ---
Subjective Progress Note Date: 09/02/24 Patient presented to emergency department late last night after falling off a l adder 3 days ago. Reportedly, was cutting branches from a tree and fell approximately 10 feet. Landed on his left side. Denies head trauma. On arrival also complaining of some shortness of breath. Tachycardic. Chest x-ray showing a large left-sided pneumothorax. lateral left 6th and 7th rib fractures. ER physician placed a left-sided ThoraVent. Did have a follow-up CT of chest, abdomen, pelvis showing trace left-sided pneumothorax with the ThoraVent catheter in place. Small hemothorax with associated pulmonary contusion or atelectasis. Redemonstration of left lateral 6th and 7th rib fractures with 9 mm displacement. Also, patient was noted to be to be in atrial fibrillation with RVR, and was bolused with 20 mg of IV Cardizem. Patient being seen in the emergency department. On 3 L/min nasal cannula. SpO2 reading 99%. Not in any respiratory distress. Blood pressure is normotensive. Nontachycardic. Normal saline infusing at 75 mg/h. As needed Dilaudid was ordered for pain . Pain described as sharp and rated 10 out of 10 with coughing or deep breathing or any movements. ThoraVent to suction and atrium at-20 cm H2O. Does have minimal intermittent air leaking. 70 cc of sanguinous output in collection chamber. CBC: WBC count 15.3 hemoglobin 13.1 g/dL, platelets 272. CMP: Sodium 139, potassium 5.3, chloride 109, serum bicarb 15, BUN 33, creatinine 1.88, glucose 249. Troponin less than 0.012. LFTs not elevated. Urinalysis unremarkable. Serum alcohol level less than 10. Current vital signs: Temperature 98.9, heart rate 94 bpm, blood pressure 145/91 mmHg, SpO2 reading 98% on 3 L/min nasal cannula. On 08/30/2024, the patient is being seen for a follow-up. Still complaining of pain across the left chest which is atraumatic. As the patient also sustained a pneumothorax and rib fractures. Left-sided chest tube is in place. The patient has a Thora vent in place. There is a very tiny left apical pneumothorax. Nevertheless, the patient is not having any air leak in the Thora vent and output from the tube is minimal and stable over the past 24 hours. Hemoglobin remained stable at 10.7. The white cell count is 13.6. Platelet count is at 228. Oxygenation remained stable and the patient is currently on 2 L of oxygen by nasal cannula with a pulse ox of 99%. The patient remains on aspirin and Plavix. The patient remains on amiodarone 200 mg p.o. twice a day. Patient is also on Toprol 25 mg p.o. daily. The patient is on normal saline rate of 75 cc an hour. The patient receiving Dilaudid for pain control 0.5 to 1 mg every 3-6 hours. [place] 5 was added also to the regimen and the patient was given lidocaine patch. No altered mentation for now. No other specific complaints. As mentioned, the patient has a displaced lateral left 6th and 7th fracture and a pneumothorax that has recovered. He remains atrial fibrillation, rate is under better control. He also has pain in the left upper extremity and shoulder without any evidence of fractures. On 08/31/2024, the patient is being seen for a follow-up. Chest wall pain is under better control and the patient is receiving Dilaudid on a as needed basis and the patient is also on [place]. Meanwhile, the patient continues to have a left chest Thora vent. I put the patient's Thora vent to waterseal yesterday. Repeat chest x-ray was done today and the patient has a small to moderate-sized left-sided pneumothorax similar probably minimally larger. At the same time, the patient has a small left-sided pleural effusion and mild pulm vascular congestion. He clinically stable. Hemodynamic stable. Oxygenation stable and the patient is currently on room air oxygen with a pulse ox of 95%. The white cell count is 8.4 with a hemoglobin 10.3 and platelet count of 214. BUN is 49 and the creatinine is 1.48, improved compared to yesterday sodium levels at 138 and a potassium level is at 4.8. The patient had disorder event attached to wall suction for the next 24 hours. The patient's current cardiac rhythm is sinus. He is known to have coronary disease with previous PCI. The patient has chronic stage III kidney disease along with hypertension hyperlipidemia diabetes mellitus and history of smoking. 09/01/2024, the patient's pleural vent was again attached to waterseal. The chest x-ray from today shows no evidence of any pneumothorax. Pain is under better control. No active drainage to the Thora vent. No bleeding. Chest wall pain is subsided. The patient has no specific complaints otherwise. Using the incentive spirometer. Currently on room air oxygen. Blood sugar is to be managed by the medical team. No other new labs are available from today. Cardiothoracic surgery is also on the case. Repeat chest x-ray from today was noted. No significant abnormalities. On 09/02/2024, the patient is doing well. No specific complaints. The patient had an episode of fall and traumatic injury to his head while moving to the bathroom. CAT scan of the brain was negative. Chest x-ray was repeated yesterday and showed no acute abnormalities. No evidence of pneumothorax. The same for today. Based on that, the Thora vent was removed and the patient is currently on room air oxygen. He remains on Dilaudid and [place] for pain control. No other significant complaints for now. No other active issues. Objective - Vital Signs Vital signs: Vital Signs Temp 98.3 F 09/02/24 09:29 Pulse 70 09/02/24 12:00 Resp 18 09/02/24 12:00 BP 112/68 09/02/24 12:00 Pulse Ox 97 09/02/24 12:00 FiO2 Intake & Output 09/01/24 09/02/24 09/02/24 18:59 06:59 18:59 Intake Total 962 540 250 Output Total 500 1875 Balance 462 -1335 250 Weight 102.6 kg Intake: IV 10 Invasive Line 1 10 Oral 962 540 240 Output: Chest Tube Drainage 100 0 Thora-Vent Left Upper 100 0 Anterior Chest Urine 400 1875 Other: Voiding Method Urinal Urinal Urinal # Voids 1 - Exam GENERAL EXAM: Alert, 73-year-old male, resting comfortably on room air oxygen. No significant respiratory distress HEAD: Normocephalic and atraumatic EYES: Normal reaction of pupils, equal size. NOSE: Clear with pink turbinates. THROAT: No erythema or exudates. NECK: No masses, no JVD. Trachea is midline. CHEST: ThoraVent left chest was removed No subcutaneous emphysema or crepitus palpated on chest wall. LUNGS: Equal air entry with no crackles, wheeze, rhonchi or dullness. No conversational dyspnea or accessory muscle use.. CVS: S1 and S2 normal with no audible murmur, regular rhythm. No extra heart sounds ABDOMEN: No hepatosplenomegaly, active bowel sounds, no guarding or rigidity. SPINE: No scoliosis or deformity SKIN: No rashes CENTRAL NERVOUS SYSTEM: No focal deficits, tone is normal in all 4 extremities. EXTREMITIES: There is no peripheral edema, clubbing, or cyanosis. Peripheral pu lses are intact. - Labs CBC & Chem 7: 08/31/24 07:57 08/31/24 07:57 Labs: Abnormal Lab Results - Last 24 Hours (Table) 09/01/24 09/01/24 09/01/24 Range/Units 14:07 16:27 19:56 POC Glucose (mg/dL) 397 H 320 H 307 H (70-110) mg/dL 09/02/24 09/02/24 Range/Units 05:59 11:27 POC Glucose (mg/dL) 232 H 254 H (70-110) mg/dL Assessment and Plan Assessment: Fall from ladder, approximately 10 feet resulting in left lateral displaced rib fractures 6 and 7, traumatic left-sided pneumothorax, hemothorax, with associated atelectasis or more likely pulmonary contusion. Status post Thora vent insertion, follow-up CT of chest, abdomen, pelvis showing trace left-sided pneumothorax with the ThoraVent catheter in place. The patient has left lateral 6th and 7th rib fractures with 9 mm displacement. Repeat chest x-ray from today shows no evidence of pneumothorax and the Thora cath was removed Chest wall pain secondary to above, currently on lidocaine patch, [place] and Dilaudid for pain control Acute hypoxemic respiratory failure, improved and the patient is currently on room air oxygen New onset atrial fibrillation with RVR, likely secondary to above, currently normal sinus Chronic kidney disease stage III Hypertension History of hyperlipidemia History of coronary artery disease with previous PCI/stents Diabetes mellitus type 2 Obesity, BMI 31.8 kg/m Fall with traumatic head injury, no neurological deficits. CAT scan of the brain has been negative. Plan: This Otovent has been discontinued Chest x-ray shows no evidence of pneumothorax Dilaudid for pain control Lidocaine patch [place] Oxygenation remained stable and the patient is currently on room air oxygen Hemoglobin is stable proBNP is not elevated Resume home medication including amiodarone 200 mg p.o. twice a day, metoprolol 25 mg XL 1 tablet a day Hemodynamically stable. Possible discharge in a.m.
[2024-09-02 20:34] LABS: Glucose,Whole Blood 279 mg/dL (70-110)
[2024-09-03 05:12] LABS: Basophils # (A) 0.04 10*3/uL (0.00-0.10); Basophils % (A) 0.5 %; Eosinophils # (A) 0.47 10*3/uL (0.04-0.35); Eosinophils % (A) 6.2 %; HCT 30.9 % (39.6-50.0); HGB 10.2 g/dL (13.0-17.0); Lymphocytes # (A) 1.73 10*3/uL (0.90-5.00); Lymphocytes % (A) 22.7 %; MCH 29.6 pg (27.0-32.0); MCV 89.6 fL (80.0-97.0); Mean Platelet Volume 11.1 fL (9.5-12.2); Monocytes # (A) 0.66 10*3/uL (0.20-1.00); Monocytes % (A) 8.7 %; Neutrophils # (A) 4.63 10*3/uL (1.80-7.70); Neutrophils % (A) 60.8 %; Platelet Count 225 10*3/uL (140-440); RBC 3.45 10*6/uL (4.40-5.60); RDW 13.2 % (11.5-14.5); WBC 7.61 10*3/uL (4.50-10.00)
[2024-09-03 05:32] LABS: African American GFR (CKD) 45 (>60 ml/min/1.73 sqM); Anion Gap 10 mmol/L; Blood Urea Nitrogen 39 mg/dL (9-20); Calcium 9.4 mg/dL (8.4-10.2); Carbon Dioxide 23 mmol/L (22-30); Chloride 104 mmol/L (98-107); Glucose 168 mg/dL (74-99); Magnesium 1.7 mg/dL (1.6-2.3); Non-African American GFR(CKD) 39 (>60 ml/min/1.73 sqM); Potassium 4.4 mmol/L (3.5-5.1); Sodium 137 mmol/L (137-145)
[2024-09-03 06:38] LABS: Glucose,Whole Blood 192 mg/dL (70-110)
[2024-09-03] MEDS ORDERED: ZINC OXIDE PASTE (Z-GUARD) 1 APPLIC TOPICAL PRN (06:46)
--- NOTE | 2024-09-03 07:08 | XR ---
EXAMINATION TYPE: XR chest 2V DATE OF EXAM: 09/03/2024 6:22 AM COMPARISON: Chest radiograph from same day. CLINICAL INDICATION: Male, 73 years old with history of pneumothorax; [facility] TECHNIQUE: XR chest 2V Frontal and lateral views of the chest. FINDINGS: Lungs/Pleura: left thoracotomy tube removed with trace pneumothorax. There is no evidence of right pl eural effusion, focal consolidation, or pneumothorax. Trace left pleural effusion. Pulmonary vascularity: Unremarkable. Heart/mediastinum: Cardiomediastinal silhouette is unremarkable. Musculoskeletal: No acute osseous pathology. Scattered subcutaneous emphysema in the left thorax. IMPRESSION: Left thoracotomy tube removal trace left pneumothorax. [facility], , 09/03/2024 7:05 AM
--- NOTE | 2024-09-03 08:36 | P.PN ---
Subjective Progress Note Date: 09/03/24 The patient was seen and evaluated this morning. He seems to be in a sinus rhythm at this point. He is not on any anticoagulation likely because of the history of falling and the bleeding. That need to be addressed as an outpatient because his [id number] score is elevated. He is asymptomatic at this point. He is on amiodarone which need to be tapered as an outpatient. The physical examination is remarkable for regular rhythm with a distant heart sounds and diminished breathing sounds bilaterally. Assessment Status post fall Pneumothorax Paroxysmal A-fib which is new CAD Multiple comorbid conditions Plan Continue the current medical regimen Taper down the dose of amiodarone Consider reevaluating the need for oral anticoagulation given his [id number] score which is elevated Follow-up with the patient Objective - Vital Signs Vital signs: Vital Signs Temp 98.2 F 09/02/24 19:50 Pulse 73 09/03/24 04:44 Resp 18 09/03/24 04:44 BP 165/83 09/03/24 04:44 Pulse Ox 96 09/03/24 04:44 FiO2 Intake & Output 09/02/24 09/03/24 09/03/24 18:59 06:59 18:59 Intake Total 719 140 Balance 719 140 Weight 102.4 kg Intake: IV 20 20 Invasive Line 1 20 20 Oral 699 120 Other: Voiding Method Urinal Toilet Urinal # Voids 3 1 - Labs CBC & Chem 7: 09/03/24 04:49 09/03/24 04:49 Labs: Abnormal Lab Results - Last 24 Hours (Table) 09/02/24 09/02/24 09/02/24 Range/Units 11:27 16:33 20:32 RBC (4.40-5.60) 10*6/uL Hgb (13.0-17.0) g/dL Hct (39.6-50.0) % Immature Gran # (0.00-0.04) 10*3/uL Eosinophils # (0.04-0.35) 10*3/uL BUN (9-20) mg/dL Creatinine (0.66-1.25) mg/dL Glucose (74-99) mg/dL POC Glucose (mg/dL) 254 H 288 H 279 H (70-110) mg/dL 09/03/24 09/03/24 09/03/24 Range/Units 04:49 04:49 06:36 RBC 3.45 L (4.40-5.60) 10*6/uL Hgb 10.2 L (13.0-17.0) g/dL Hct 30.9 L (39.6-50.0) % Immature Gran # 0.08 H (0.00-0.04) 10*3/uL Eosinophils # 0.47 H (0.04-0.35) 10*3/uL BUN 39 H (9-20) mg/dL Creatinine 1.72 H (0.66-1.25) mg/dL Glucose 168 H (74-99) mg/dL POC Glucose (mg/dL) 192 H (70-110) mg/dL
[2024-09-03 09:05] VITALS: BP 150/79; PULSE 67; TEMP 98.1
[2024-09-03 11:37] LABS: Glucose,Whole Blood 240 mg/dL (70-110)
--- NOTE | 2024-09-03 13:15 | P.DS ---
Providers Date of admission: 08/29/24 03:53 Expected date of discharge: 09/03/24 Attending physician: Gene San MD Consults: 08/29/24 03:53 Consult Physician Routine Consulting Provider: Bennett Ling Consult Reason/Comments: ptx Do you want consulting provider notified?: Yes Consult Physician Routine Consulting Provider: [facility] Consult Reason/Comments: Pulmonary Contusion Do you want consulting provider notified?: Yes Consult Physician Routine Consulting Provider: Nabil Bhakta Consult Reason/Comments: trauma Do you want consulting provider notified?: Yes 08/30/24 14:42 Consult Physician Routine Consulting Provider: Shabbir Broderick Consult Reason/Comments: Trauma, pneumothorax Do you want consulting provider notified?: Yes 09/01/24 23:12 Consult Physician Routine Consulting Provider: Flash Jon Consult Reason/Comments: Sustained A.Fib RVR Do you want consulting provider notified?: Yes, Notify in am [facility]: Mechanical fall Traumatic large left pneumothorax Left lateral 6th and 7th rib fracture Suspected pulmonary contusion Small left hemothorax New onset A-fib with RVR Leukocytosis, reactive secondary to above History of CKD stage III Mild anion gap and non-anion gap metabolic acidosis, resolving Mild hyperkalemia, resolved Type 2 diabetes Hyperglycemia CAD status post stent Dyslipidemia Hypertension Hospital Course: 73-year-old male with a history of CKD stage III, diabetes, CAD status post stent, hyperlipidemia, hypertension presented after mechanical fall resulted in left lateral 6th and 7th rib fractures as well as traumatic large left pneumothorax. Patient was seen in consultation with multiple specialty services including trauma surgery, CT surgery, pulmonology, cardiology. Patient had Thora vent placed and his chest x-rays were followed with resolution of pneumothorax noted on 09/01. Chest tube was placed to waterseal and then removed on 09/02. Patient continued to have resolution of pneumothorax by 09/03. His pain was controlled with escalating doses of oral narcotics and IV narcotics. He was able to be transition to p.o. [place] for pain control with the addition of lidocaine patch, Robaxin, Tylenol as needed, ice packs. Patient was counseled on following up with primary care physician, cardiology, CT surgery. Patient is noted to be in atrial fibrillation which is new onset, [id number] score is high and warrants anticoagulation, however, due to recent fall patient is deferred on anticoagulation at this time. We recommend he follows up with cardiology to consider single antiplatelet plus Eliquis strategy for anticoagulation. I spent 38 minutes on this discharge Gen: In NAD, non-toxic HEENT: normocephalic, atraumatic, hearing acuity is intant, mucous membranes moist CVS: perfusing all extremities well, no pitting edema, Respiratory: symmetric chest expansion, no accessory muscle use, GI: soft, NTTP, ND, : no suprapubic tenderness, no CVA tenderness MSK/Derm: no rashes, cyanosis Neuro: CN II-XII intact, no motor weakness, Psych: cooperative, euthymic mood, judgment and insight is intact Patient Condition at Discharge: Serious Plan - Discharge Summary Discharge Rx Participant: No New Discharge Prescriptions: New HYDROcodone/APAP 10-325MG [[place] 10-325] 1 each PO Q4HR PRN #30 tab PRN Reason: Pain Acetaminophen Tab [Tylenol] 650 mg PO Q6HR PRN tab PRN Reason: Fever And/ Or Pain Amiodarone [Cordarone] 200 mg PO DAILY #14 tab Lidocaine 4% Patch 1 patch TOPICAL DAILY #30 patch methocarbamoL [Robaxin] 500 mg PO TID #90 tab Sodium Bicarbonate Tab 650 mg PO TID #90 tab Continue Atorvastatin [Lipitor] 80 mg PO HS sitaGLIPtin [Januvia] 100 mg PO DAILY Clopidogrel [Plavix] 75 mg PO DAILY metFORMIN HCL [Glucophage] 500 mg PO BID Tamsulosin HCl [Flomax] 0.4 mg PO DAILY Metoprolol Succinate (ER) [Toprol XL] 25 mg PO DAILY Isosorbide Mononitrate ER [Imdur] 30 mg PO DAILY Vit C/E/Zn/Coppr/Lutein/Zeaxan [Preservision Areds 2 Softgel] 1 cap PO BID Nitroglycerin Sl Tabs [Nitrostat] 0.4 mg SUBLINGUAL Q5M PRN PRN Reason: Chest Pain [place] 3-6-9 1 cap PO DAILY Aspirin 81 mg PO DAILY Insulin Glargine,Hum.rec.anlog [Lantus Solostar Pen] 65 units SQ HS Ibuprofen [Motrin] 800 mg PO TID PRN PRN Reason: Pain Discontinued HYDROcodone/APAP 10-325MG [[place] 10-325] 1 tab PO Q6H PRN PRN Reason: Pain Discharge Medication List Atorvastatin [Lipitor] 80 mg PO HS 07/13/13 [History] Clopidogrel [Plavix] 75 mg PO DAILY 07/13/13 [History] sitaGLIPtin [Januvia] 100 mg PO DAILY 07/13/13 [History] Aspirin 81 mg PO DAILY 08/29/24 [History] Ibuprofen [Motrin] 800 mg PO TID PRN 08/29/24 [History] Insulin Glargine,Hum.rec.anlog [Lantus Solostar Pen] 65 units SQ HS 08/29/24 [History] Isosorbide Mononitrate ER [Imdur] 30 mg PO DAILY 08/29/24 [History] Metoprolol Succinate (ER) [Toprol XL] 25 mg PO DAILY 08/29/24 [History] Nitroglycerin Sl Tabs [Nitrostat] 0.4 mg SUBLINGUAL Q5M PRN 08/29/24 [History] [place] 3-6-9 1 cap PO DAILY 08/29/24 [History] Tamsulosin HCl [Flomax] 0.4 mg PO DAILY 08/29/24 [History] Vit C/E/Zn/Coppr/Lutein/Zeaxan [Preservision Areds 2 Softgel] 1 cap PO BID 08/29/24 [History] metFORMIN HCL [Glucophage] 500 mg PO BID 08/29/24 [History] Acetaminophen Tab [Tylenol] 650 mg PO Q6HR PRN tab 09/03/24 [Rx] Amiodarone [Cordarone] 200 mg PO DAILY #14 tab 09/03/24 [Rx] HYDROcodone/APAP 10-325MG [[place] 10-325] 1 each PO Q4HR PRN #30 tab 09/03/24 [Rx] Lidocaine 4% Patch 1 patch TOPICAL DAILY #30 patch 09/03/24 [Rx] Sodium Bicarbonate Tab 650 mg PO TID #90 tab 09/03/24 [Rx] methocarbamoL [Robaxin] 500 mg PO TID #90 tab 09/03/24 [Rx] Follow up Appointment(s)/Referral(s): Scarlet Sharpe, NPC [Nurse Practitioner] - As Needed (You can be seen in the surgeon's office behind the hospital in [facility], [address] Office phone number is . Please call with any que stions regarding your pneumothorax or Thora-vent site) [facility] [NON-STAFF] - Dwight Romero DO [Primary Care Provider] - 1-2 days Herve Khan DO [STAFF PHYSICIAN] - 1 Week Activity/Diet/Wound Care/Special Instructions: DISCHARGE INSTRUCTIONS: 1. No driving for 2 weeks, or until physician gives their ok. 2. No lifting, pushing, or pulling more than 10 pounds for 2 weeks. The physician will advise of any restriction changes. 3. Continue pain control per as needed orders 4. Continue with incentive spirometry and splinting until otherwise directed by the physician. 5. Leave chest tube dressing for 48 hours. After that, remove all dressings and shower daily. 6. Routine incision care. No powders, lotions, ointments on incisions. 7. Please call surgeon/DIRECTOR TREASURER for temp greater than 101 F or purulent drainage from incisions. 8. Smoking cessation counseling and program information provided. Quitting smoking is the most important step you can take to improve your health. For additional information and assistance to quit smoking, please call the [place] tobacco quit line (7-803-UUPX-NOW/ ) or online: [email or web address] Discharge Disposition: HOME SELF-CARE
== END 2024-09-03 14:26 | disposition home or self-care (01) | DRG 199 ==
LOC: EC 23:36 → 3SCARD 08-29 03:53
PROVIDERS: ADMIT Internal Medicine; ATTEND Internal Medicine
PROC: 0W9B30Z Drainage of Left Pleural Cavity with Drainage Device, Percutaneous Approach (ICD-10-PCS; principal; 2024-08-28)
DX: S27.2XXA Traumatic hemopneumothorax, initial encounter (principal); J93.0 Spontaneous tension pneumothorax; J96.01 Acute respiratory failure with hypoxia; S22.42XA Multiple fractures of ribs, left side, initial encounter for closed fracture; S09.90XA Unspecified injury of head, initial encounter; E11.22 Type 2 diabetes mellitus with diabetic chronic kidney disease; N18.30 Chronic kidney disease, stage 3 unspecified; I12.9 Hypertensive chronic kidney disease with stage 1 through stage 4 chronic kidney disease, or unspecified chronic kidney disease; Z68.31 Body mass index [BMI] 31.0-31.9, adult; I48.92 Unspecified atrial flutter; S27.321A Contusion of lung, unilateral, initial encounter; J90 Pleural effusion, not elsewhere classified; E87.20 Acidosis, unspecified; I48.0 Paroxysmal atrial fibrillation; E11.65 Type 2 diabetes mellitus with hyperglycemia; D72.828 Other elevated white blood cell count; F17.200 Nicotine dependence, unspecified, uncomplicated; R03.1 Nonspecific low blood-pressure reading; E87.5 Hyperkalemia; I25.10 Atherosclerotic heart disease of native coronary artery without angina pectoris; E78.5 Hyperlipidemia, unspecified; E66.9 Obesity, unspecified; Z91.81 History of falling; Z79.4 Long term (current) use of insulin; W11.XXXA Fall on and from ladder, initial encounter; Z79.02 Long term (current) use of antithrombotics/antiplatelets; Z79.82 Long term (current) use of aspirin; Z79.84 Long term (current) use of oral hypoglycemic drugs; Z79.899 Other long term (current) drug therapy; Z85.51 Personal history of malignant neoplasm of bladder; Z95.5 Presence of coronary angioplasty implant and graft; Z96.651 Presence of right artificial knee joint
CPT/HCPCS: 32551; 36415; 70450; 71045; 71046; 71260; 72125; 74177; 80048; 80053; 80320; 81003; 83036; 83735; 83880; 84100; 84484; 85025; 85610; 85730; 93005; 96361; 96372; 96374; 96375; 96376; 99291